=== PATIENT | female | born 1965 | race Caucasian/White ===

== ENCOUNTER 2016-08-05 18:23 | Emergency (ER) | payer MEDICAID ==
[~2016-08-05] VITALS: Ht 167.6 cm; Wt 95.6 kg
[~2016-08-05 18:23] MED LIST: ARIP5TAB6 PO; ASCO10004 PO; CHOL100018 PO; CITA20TA9 PO; DICL50TA4 PO; ESCI10TA PO; ESOM20CA PO; GABA300C10 PO; IBUP-1222 PO; INHALER INH; LORA10TA9 PO; OMEG1CAP6 PO; OXYC1TAB7 PO; TRAZ100T15 PO; VITA100T6 PO; VITA80004 PO; [UNRECOGNIZED DRUG - REMARK]; [UNRECOGNIZED DRUG - REMARK]
[2016-08-05 19:03] LABS: HEMOGLOBIN 15.1 g/dL (11.7-16.4)
[2016-08-05 19:12] LABS: ASPARTATE AMINO TRANSFERASE 14 U/L (15-37); BLOOD UREA NITROGEN 18 mg/dL (7-18)
[2016-08-05 20:35] VITALS: BP 132/70
== END 2016-08-05 20:53 | disposition home or self-care (01) ==
LOC: ED 19:44
DX: R33.9 Retention of urine, unspecified (principal); K21.9 Gastro-esophageal reflux disease without esophagitis; I10 Essential (primary) hypertension; Z90.49 Acquired absence of other specified parts of digestive tract; Z88.5 Allergy status to narcotic agent; Z88.8 Allergy status to other drugs, medicaments and biological substances
CPT/HCPCS: 36415; 51702; 80053; 81003; 83690; 85025; 99284

== ENCOUNTER 2016-08-10 19:55 | Emergency (ER) | payer MEDICAID ==
[~2016-08-10] VITALS: Ht 167.6 cm; Wt 94.0 kg
[2016-08-10] MEDS ORDERED: IBUP800T PO (20:11)
[2016-08-10] MEDS ORDERED: HYDR-3138 PO (20:11)
[2016-08-10] MEDS ORDERED: BENZ100C4 PO (20:11)
[2016-08-10] MEDS ORDERED: TRAZ100T15 PO (20:11)
[2016-08-10] MEDS ORDERED: ACET500T76 PO (20:11)
[2016-08-10] MEDS ORDERED: IBUP-1222 PO (20:11)
[2016-08-10] MEDS ORDERED: LORA10TA3 PO (20:11)
[2016-08-10] MEDS ORDERED: HYDR25TA11 PO (20:11)
[2016-08-10] MEDS ORDERED: TRAM50TA2 PO (20:11)
[2016-08-10] MEDS ORDERED: CHOL500014 PO (20:11)
[2016-08-10] MEDS ORDERED: DIPH25CA61 PO (20:11)
[2016-08-10] MEDS ORDERED: CITA20TA5 PO (20:11)
[2016-08-10] MEDS ORDERED: SODIUM CHLORIDE FLUSH 10ML SYR IVF ONE (20:30)
[2016-08-10 21:16] LABS: BLOOD UREA NITROGEN 14 mg/dL (7-18); HEMOGLOBIN 14.9 g/dL (11.7-16.4); IS PT STATUS REG ER OR PRE ER? YES
[2016-08-10 21:31] VITALS: BP 111/56
== END 2016-08-10 21:32 | disposition home or self-care (01) ==
LOC: ED 20:58
DX: R07.89 Other chest pain (principal); I10 Essential (primary) hypertension
CPT/HCPCS: 36415; 71010; 80048; 82040; 84484; 85025; 85610; 85730; 93005

== ENCOUNTER 2016-09-08 00:21 | Emergency (ER) | payer MEDICAID ==
[~2016-09-08] VITALS: Ht 152.4 cm; Wt 92.6 kg
[~2016-09-08 00:21] MED LIST changes: +ACET500T76 PO; +BENZ100C4 PO; +CHOL500014 PO; +CITA20TA5 PO; +DIPH25CA61 PO; +HYDR-3138 PO; +HYDR25TA11 PO; +IBUP800T PO; +LORA10TA3 PO; +TRAM50TA2 PO
[2016-09-08] MEDS ORDERED: HYDROcodone/APAP 5/325 TABLET PO ONE (01:30)
[2016-09-08] MEDS ORDERED: HYDROcodone/APAP 5/325 TABLET ONE (01:40)
[2016-09-08 01:46] LABS: ASPARTATE AMINO TRANSFERASE 17 U/L (15-37); BLOOD UREA NITROGEN 16 mg/dL (7-18)
[2016-09-08] MEDS ORDERED: NERVE PILL PO (01:48)
[2016-09-08 01:51] LABS: IS PT STATUS REG ER OR PRE ER? YES
[2016-09-08 03:23] VITALS: BP 159/80
== END 2016-09-08 02:17 | disposition home or self-care (01) ==
LOC: ED 02:11
DX: R07.2 Precordial pain (principal); I10 Essential (primary) hypertension; F17.200 Nicotine dependence, unspecified, uncomplicated
CPT/HCPCS: 36415; 71010; 80053; 83880; 84484; 85025; 93005

== ENCOUNTER 2016-09-21 19:49 | Observation (INO) | payer MEDICAID ==
[~2016-09-21] VITALS: Ht 152.4 cm; Wt 90.1 kg
[~2016-09-21 19:49] MED LIST changes: +NERVE PILL PO
[2016-09-21 21:06] LABS: ASPARTATE AMINO TRANSFERASE 28 U/L (15-37); BLOOD UREA NITROGEN 15 mg/dL (7-18)
[2016-09-21 21:11] LABS: IS PT STATUS REG ER OR PRE ER? YES
[2016-09-21] MEDS ORDERED: MECLIZINE CHEWABLE 25 MG TAB PO ONE (21:30)
[2016-09-21] MEDS ORDERED: MECLIZINE CHEWABLE 25 MG TAB ONE (21:56)
[2016-09-22] MEDS ORDERED: SODIUM CHLORIDE 0.9% 1,000 ML IV SCH (01:05)
[2016-09-22 01:22] VITALS: BP 141/89
[2016-09-22] MEDS ORDERED: POLYETHYLENE GLYCOL 17 GM PACKET PO PRN (01:30)
[2016-09-22] MEDS ORDERED: DIAZEPAM 5 MG/ML, 2ML IV PRN (01:30)
[2016-09-22] MEDS ORDERED: MECLIZINE CHEWABLE 25 MG TAB PO PRN (01:30)
[2016-09-22] MEDS ORDERED: ACETAMINOPHEN 325 MG TABLET PO PRN (01:30)
[2016-09-22] MEDS ORDERED: NITROGLYCERIN 0.4 MG BOTTLE (25 TABS) SL PRN (01:30)
[2016-09-22] MEDS ORDERED: DOCUSATE 100 MG CAPSULE PO PRN (01:30)
[2016-09-22] MEDS ORDERED: ONDANSETRON 2MG/ML, 2ML IVPush PRN (01:30)
[2016-09-22] MEDS ORDERED: ENOXAPARIN 40 MG/0.4 ML SQ SCH (01:30)
[2016-09-22] MEDS ORDERED: BISACODYL 10 MG SUPP PR PRN (01:30)
[2016-09-22 03:13] VITALS: BP 124/77
[2016-09-22 05:45] LABS: IS PT STATUS REG ER OR PRE ER? NO
[2016-09-22 07:02] VITALS: BP 119/73
[2016-09-22] MEDS ORDERED: REGADENOSON 0.4 MG/5 ML SYRINGE ONE (09:17)
[2016-09-22 11:21] LABS: IS PT STATUS REG ER OR PRE ER? NO
[2016-09-22 13:41] VITALS: BP 128/82
[2016-09-22] MEDS ORDERED: ACET325T14 PO (16:50)
[2016-09-22] MEDS ORDERED: MECL-85 PO (16:50)
[2016-09-22] MEDS ORDERED: GABA100C PO (16:57)
== END 2016-09-22 19:07 | disposition home or self-care (01) ==
LOC: ED 20:20 → EDIP 09-22 00:14 → INTOOBSV 09-22 00:14 → SUATTDRO 09-22 00:26 → 5SO 09-22 01:09
DX: R07.89 Other chest pain (principal); R42 Dizziness and giddiness; N83.209 Unspecified ovarian cyst, unspecified side; E55.9 Vitamin D deficiency, unspecified; K21.9 Gastro-esophageal reflux disease without esophagitis; E03.9 Hypothyroidism, unspecified; I10 Essential (primary) hypertension; Z98.890 Other specified postprocedural states; Z87.891 Personal history of nicotine dependence
CPT/HCPCS: 36415; 70450; 71010; 78452; 80053; 80061; 80307; 84443; 84484; 85025; 93005; 93017; 93306; 96360; 96361; 96372; 99285; A9502; C9898; G0378; J1650; J2785; J7030

== ENCOUNTER 2016-09-25 22:43 | Emergency (ER) | payer MEDICAID ==
[~2016-09-25] VITALS: Ht 152.4 cm; Wt 92.6 kg
[~2016-09-25 22:43] MED LIST changes: +ACET325T14 PO; +GABA100C PO; +MECL-85 PO
[2016-09-25 23:00] VITALS: BP 127/80
[2016-09-26 00:01] LABS: PATH.CAST-FLAG NOT PRESENT; SPERM-FLAG NOT PRESENT; SRC-FLAG NOT PRESENT; XTAL-FLAG NOT PRESENT; YLC-FLAG NOT PRESENT
== END 2016-09-25 23:28 | disposition home or self-care (01) ==
LOC: ED 23:12
DX: S39.012A Strain of muscle, fascia and tendon of lower back, initial encounter (principal); M51.34 Other intervertebral disc degeneration, thoracic region; M51.36 Other intervertebral disc degeneration, lumbar region; K21.9 Gastro-esophageal reflux disease without esophagitis; Z90.49 Acquired absence of other specified parts of digestive tract; X58.XXXA Exposure to other specified factors, initial encounter; Y93.89 Activity, other specified; Y92.89 Other specified places as the place of occurrence of the external cause; Y99.8 Other external cause status
CPT/HCPCS: 72072; 72110; 81001; 87086

== ENCOUNTER 2016-10-03 19:17 | Emergency (ER) | payer MEDICAID ==
[~2016-10-03] VITALS: Ht 167.6 cm; Wt 93.2 kg
[2016-10-03 21:33] VITALS: BP 130/80
== END 2016-10-03 21:39 | disposition home or self-care (01) ==
LOC: ED 20:00
DX: M17.12 Unilateral primary osteoarthritis, left knee (principal); K21.9 Gastro-esophageal reflux disease without esophagitis; I10 Essential (primary) hypertension
CPT/HCPCS: 99284

== ENCOUNTER 2016-11-10 21:53 | Emergency (ER) | payer MEDICAID ==
[~2016-11-10] VITALS: Ht 167.6 cm; Wt 95.0 kg
[~2016-11-10 21:53] MED LIST changes: +ACET500T71 PO; -ACET500T76 PO
[2016-11-10] MEDS ORDERED: ACETAMINOPHEN 325 MG TABLET PO ONE (22:00)
[2016-11-10 22:38] LABS: BLOOD UREA NITROGEN 19 mg/dL (7-18)
[2016-11-10] MEDS ORDERED: ACETAMINOPHEN 325 MG TABLET ONE (22:38)
[2016-11-10 22:42] LABS: IS PT STATUS REG ER OR PRE ER? YES
[2016-11-10] MEDS ORDERED: SERT25TA PO (22:47)
[2016-11-10] MEDS ORDERED: [UNRECOGNIZED DRUG - OTHER] PO (22:47)
[2016-11-10] MEDS ORDERED: CETI10CA PO (22:47)
[2016-11-10] MEDS ORDERED: ALBU0.63 NEB (22:47)
[2016-11-10] MEDS ORDERED: CYAN250013 PO (22:47)
[2016-11-10 23:43] VITALS: BP 123/76
== END 2016-11-10 23:45 | disposition home or self-care (01) ==
LOC: ED 23:43
DX: R07.89 Other chest pain (principal); K21.9 Gastro-esophageal reflux disease without esophagitis; I10 Essential (primary) hypertension; Z90.49 Acquired absence of other specified parts of digestive tract; Z79.82 Long term (current) use of aspirin
CPT/HCPCS: 36415; 71010; 80048; 82040; 84484; 85025; 93005; 99285

== ENCOUNTER 2016-11-19 20:27 | Emergency (ER) | payer MEDICAID ==
[~2016-11-19] VITALS: Ht 165.1 cm; Wt 92.0 kg
[~2016-11-19 20:27] MED LIST changes: +ALBU0.63 NEB; +CETI10CA PO; +CYAN250013 PO; +SERT25TA PO; +[UNRECOGNIZED DRUG - OTHER] PO
[2016-11-19 22:35] LABS: BLOOD UREA NITROGEN 18 mg/dL (7-18)
[2016-11-19 22:42] LABS: IS PT STATUS REG ER OR PRE ER? YES
[2016-11-19 23:20] VITALS: BP 124/86
== END 2016-11-19 23:22 | disposition home or self-care (01) ==
LOC: ED 21:40
DX: R07.2 Precordial pain (principal); R33.8 Other retention of urine; I10 Essential (primary) hypertension; Z90.49 Acquired absence of other specified parts of digestive tract
CPT/HCPCS: 36415; 51702; 80048; 81003; 82040; 84484; 85025; 93005

== ENCOUNTER 2016-11-27 22:51 | Emergency (ER) | payer MEDICAID ==
[~2016-11-27] VITALS: Ht 165.1 cm; Wt 92.0 kg
[2016-11-27 22:52] VITALS: BP 132/86
[2016-11-27 23:41] LABS: BLOOD UREA NITROGEN 13 mg/dL (7-18)
[2016-11-27 23:45] LABS: IS PT STATUS REG ER OR PRE ER? YES
== END 2016-11-28 01:06 | disposition home or self-care (01) ==
LOC: ED 23:13
DX: R07.89 Other chest pain (principal); R07.2 Precordial pain; R20.9 Unspecified disturbances of skin sensation; F17.200 Nicotine dependence, unspecified, uncomplicated; K21.9 Gastro-esophageal reflux disease without esophagitis
CPT/HCPCS: 36415; 70450; 71010; 80048; 81003; 82040; 84484; 85025; 93005; 99285

== ENCOUNTER 2016-12-03 00:36 | Emergency (ER) | payer MEDICAID ==
[~2016-12-03] VITALS: Ht 157.5 cm; Wt 95.0 kg
[2016-12-03 01:22] LABS: BLOOD UREA NITROGEN 15 mg/dL (7-18)
[2016-12-03 01:28] LABS: IS PT STATUS REG ER OR PRE ER? YES
[2016-12-03 02:07] VITALS: BP 122/80
== END 2016-12-03 02:09 | disposition home or self-care (01) ==
LOC: ED 01:50
DX: R06.00 Dyspnea, unspecified (principal); R60.9 Edema, unspecified; I10 Essential (primary) hypertension; K21.9 Gastro-esophageal reflux disease without esophagitis; M19.90 Unspecified osteoarthritis, unspecified site; F17.200 Nicotine dependence, unspecified, uncomplicated
CPT/HCPCS: 36415; 71010; 80048; 82040; 83880; 84484; 85025; 93005; 99285

== ENCOUNTER 2016-12-04 19:32 | Emergency (ER) | payer MEDICAID ==
[~2016-12-04] VITALS: Ht 157.5 cm; Wt 95.0 kg
[2016-12-04] MEDS ORDERED: KETOROLAC 30 MG/1 ML ONE (21:17)
[2016-12-04 21:22] VITALS: BP 128/81
[2016-12-04] MEDS ORDERED: KETOROLAC 30 MG/1 ML IM ONE (21:30)
[2016-12-04 21:58] LABS: BLOOD UREA NITROGEN 18 mg/dL (7-18)
[2016-12-04 22:02] LABS: ASPARTATE AMINO TRANSFERASE 14 U/L (15-37)
== END 2016-12-04 22:42 | disposition home or self-care (01) ==
LOC: ED 21:20
DX: N83.202 Unspecified ovarian cyst, left side (principal); R30.0 Dysuria; K21.9 Gastro-esophageal reflux disease without esophagitis; I10 Essential (primary) hypertension; Z90.49 Acquired absence of other specified parts of digestive tract
CPT/HCPCS: 36415; 80053; 81003; 83690; 85025; 96372; 99284; J1885

== ENCOUNTER 2018-06-23 15:13 | Observation (INO) | payer MEDICAID ==
[~2018-06-23] VITALS: Ht 154.9 cm; Wt 94.7 kg
[~2018-06-23 15:13] MED LIST changes: +ARIP5TAB13 PO; -ARIP5TAB6 PO; +BENZ-17 PO; -BENZ100C4 PO; +CHOL100012 PO; -CHOL100018 PO; -CHOL500014 PO; +CHOL500045 PO; -CITA20TA5 PO; +CITA20TA6 PO; -HYDR-3138 PO; +HYDR-3237 PO; +IBUP-1223 PO; -IBUP800T PO; +LORA-247 PO; +LORA-856 PO; -LORA10TA3 PO; -LORA10TA9 PO; +TRAZ-137 PO; -TRAZ100T15 PO
[2018-06-23 15:55] LABS: BASOPHILS # (AUTO) 0.03 x10^3/uL (0-0.1); BASOPHILS % (AUTO) 1 % (0-1); EOSINOPHILS # (AUTO) 0.02 x10^3/uL (0-0.4); EOSINOPHILS % (AUTO) 0 % (1-7); LYMPHOCYTES # (AUTO) 0.94 x10^3/uL (1-3.4); LYMPHOCYTES % (AUTO) 17 % (22-44); MD NO; MEAN CORPUSCULAR HEMOGLOBIN 29.2 pg (27.0-34.8); MEAN CORPUSCULAR HGB CONC 33.1 g/dL (32.4-35.8); MEAN CORPUSCULAR VOLUME 88.2 fL (80-100); MEAN PLATELET VOLUME 7.9 fL (7.4-10.4); MONOCYTES # (AUTO) 0.29 x10^3/uL (0.2-0.8); MONOCYTES % (AUTO) 5 % (2-9); NEUTROPHILS # (AUTO) 4.41 x10^3/uL (1.8-6.8); NEUTROPHILS % (AUTO) 78 % (42-75); PLATELET COUNT 259 x10^3/uL (130-400); RED BLOOD COUNT 5.36 x10^6/uL (3.82-5.3); RED CELL DISTRIBUTION WIDTH 13.9 % (9.6-15.2)
[2018-06-23 16:02] LABS: INTERNATIONAL NORMALIZED RATIO 0.99 (0.93-1.1); PROTHROMBIN TIME 10.5 Seconds (9.6-11.5)
[2018-06-23 16:06] LABS: ANION GAP 8 mmol/L (5-15); CALCIUM 9.1 mg/dL (8.5-10.1); CHLORIDE 109 mmol/L (98-107); CREATININE 0.96 mg/dL (0.55-1.02)
[2018-06-23 16:10] LABS: TROPONIN I < 0.015 ng/mL (0.000-0.045)
--- NOTE | 2018-06-23 16:18 | NUR ---
PT PRESENTS TO ED WITH C/O STERNAL CP 02/09 ONSET 2 WEEKS AGO WITH SOB. PT STATES "THE COLD MAKES IT WORSE." ALL MONITORS IN PLACE, CALL LIGHT IN REACH. US IN PROGRESS. AWAITING US RESULTS AND DISPO AT THIS TIME.
--- NOTE | 2018-06-23 16:46 | NUR ---
PT UP TO BATHROOM TO VOID, GAIT STEADY
[2018-06-23] MEDS ORDERED: methylPREDNISolone SOD SUCC 125 MG/2 ML IVP ONE (17:00)
[2018-06-23] MEDS ORDERED: DIPHENHYDRAMINE 50 MG/ML, 1ML IVPush ONE (17:00)
[2018-06-23] MEDS ORDERED: methylPREDNISolone SOD SUCC 125 MG/2 ML ONE (17:11)
[2018-06-23] MEDS ORDERED: DIPHENHYDRAMINE 50 MG/ML, 1ML ONE (17:11)
--- NOTE | 2018-06-23 17:32 | NUR ---
PIV PLACED. PT REPORTS IODINE ALLERGY BUT STATES SHE HAS HAD PREVIOUS CT SCANS WITH CONTRAST AND NO REACTION. EDMD GERARD NOTIFIED. INSTRUCTED RN TO ADMIN BENADRYL ORDERED PRIOR TO CT SCAN. EDMD NOTIFIED PT REPORTS 10/10 CHEST PAIN, HOWEVER PT APPEARS COMFORTABLE, LAUGHING AND CONVERSING WITH DAUGHTER. PT A&O, RESPS EVEN AND UNLABORED, SPEAKING IN FULL SENTENCES. ALL MONITORS IN PLACE.
[2018-06-23] MEDS ORDERED: NITROGLYCERIN SINGLE TAB 0.4 MG SL ONE (17:35)
[2018-06-23] MEDS ORDERED: ASPIRIN 81 MG TABLET CHEW ONE (17:43)
--- NOTE | 2018-06-23 17:49 | NUR ---
pt reports pain level 8/10 from 10, however declines repeat dose nitro.
--- NOTE | 2018-06-23 17:50 | NUR ---
CT PAGED TO NOTIFY PT HAS ALLERGY TO IODINE, CT NOTIFIED PT HAS BEEN PREMEDICATED AND IS READY FOR SCAN.
[2018-06-23] MEDS ORDERED: NITROGLYCERIN SINGLE TAB 0.4 MG SL PRN (18:00)
[2018-06-23] MEDS ORDERED: ASPIRIN 81 MG TABLET CHEW PO ONE (18:00)
--- NOTE | 2018-06-23 18:26 | NUR ---
REPORT TO BREAK MELITA MEJIA; PT IN CT.
--- NOTE | 2018-06-23 18:40 | NUR ---
TASK RN: PT RETURNED FROM CT, NAD NOTED. DESPITE "9/10 PAIN" PT SITTING UP IN [facility], TALKING/LAUGHING ON PHONE. RESPIRATIONS EVEN AND UNLABORED, PWD. BP/SPO2/ECG MONITORING IN PLACE. NSR ON MONITOR. SPO2 >90% ON RA.
[2018-06-23] MEDS ORDERED: OMNIPAQUE 350 MG/ML, 100ML BOTTLE ONE (18:42)
--- NOTE | 2018-06-23 19:05 | NUR ---
report taken from clarence Lroa. all results back, chart up for recheck. awaiting MD and dispo at this time.
[2018-06-23] MEDS ORDERED: SODIUM CHLORIDE FLUSH 10ML SYR IVF PRN (19:30)
--- NOTE | 2018-06-23 19:35 | NUR ---
PT UP TO BATHROOM TO VOID, GAIT STEADY. PT TO BE ADMITTED, UPDATED WITH POC. PT IS UNABLE TO RECALL HOME MEDS. PT'S PREFERRED PHARMACY CALLED, PHARMACY STAFF UNABLE TO BE REACHED AT THIS TIME BY RN TO CONFIRM PT'S HOME MEDS.
[2018-06-23] MEDS ORDERED: PRAV20TA2 PO (19:40)
[2018-06-23] MEDS ORDERED: OXYC-302 PO (19:40)
[2018-06-23] MEDS ORDERED: ESOM20CA PO ×2 (19:40)
[2018-06-23] MEDS ORDERED: APIX5TAB PO (19:40)
[2018-06-23] MEDS ORDERED: CYAN2500 PO (19:44)
[2018-06-23] MEDS ORDERED: vitamin d PO (19:44)
[2018-06-23] MEDS ORDERED: [UNRECOGNIZED DRUG - OTHER] PO (19:45)
--- NOTE | 2018-06-23 19:45 | NUR ---
pts pharmacy contacted, med rec updated per pts pharmacy.
[2018-06-23] MEDS ORDERED: [UNRECOGNIZED DRUG - CODE] PO (19:46)
--- NOTE | 2018-06-23 19:56 | NUR ---
REPORT GIVEN TO RECEIVING RN RAQUEL. PT AWAITING TRANSPORT TO ROOM TO ROOM 509-1.
--- NOTE | 2018-06-23 19:56 | NUR ---
PT ATTACHED TO ALL MONITORS, REMAINS IN NORMAL SINUS RHYTHM. PT A&O, RESPS EVEN AND UNLABORED, NO COMPLAINT AT THIS TIME.
--- NOTE | 2018-06-23 20:05 | NUR ---
PT TRANSPORTED TO [facility], NADN AT TRANSPORT.
[2018-06-23] MEDS ORDERED: DOCUSATE 100 MG CAPSULE PO PRN (23:00)
[2018-06-23] MEDS ORDERED: HEPARIN 5,000 UNITS/ML, 1ML SQ SCH (23:00)
[2018-06-23] MEDS ORDERED: ACETAMINOPHEN 325 MG TABLET PO PRN (23:00)
[2018-06-23] MEDS: TEMPLATE NON-FORMULARY MED. (Esomeprazole Magnesium** (Nexium**) 20 MG) PO SCH (23:00)
[2018-06-23] MEDS ORDERED: ONDANSETRON ODT 4 MG PO PRN (23:00)
[2018-06-23] MEDS ORDERED: PRAVASTATIN 20 MG TABLET PO SCH (23:00)
[2018-06-23] MEDS ORDERED: GABAPENTIN 300 MG CAPSULE PO PRN (23:00)
[2018-06-23] MEDS ORDERED: LIDODERM 5% PATCH TD PRN (23:00)
[2018-06-23] MEDS ORDERED: NICOTINE 21 MG/24 HR PATCH.TD24 TD SCH (23:00)
[2018-06-23] MEDS ORDERED: OXYcodone/APAP 5/325MG TABLET PO PRN (23:30)
[2018-06-23] MEDS ORDERED: ALBUTEROL SULFATE 2.5 MG/3 ML NPPB PRN (23:30)
[2018-06-24] MEDS ORDERED: HEPARIN 5,000 UNITS/ML, 1ML ONE (00:03)
[2018-06-24] MEDS: GABAPENTIN 100 MG CAPSULE PO SCH ×3 (00:08→16:00)
[2018-06-24 00:12] LABS: TROPONIN I < 0.015 ng/mL (0.000-0.045)
[2018-06-24 00:28] VITALS: BP 124/82
[2018-06-24 01:33] VITALS: BP 95/65
[2018-06-24 05:24] LABS: BASOPHILS % (AUTO) 0 % (0-1); EOSINOPHILS # (AUTO) 0.06 x10^3/uL (0-0.4); EOSINOPHILS % (AUTO) 2 % (1-7); LYMPHOCYTES # (AUTO) 0.29 x10^3/uL (1-3.4); LYMPHOCYTES % (AUTO) 7 % (22-44); MD NO; MEAN CORPUSCULAR HEMOGLOBIN 29.5 pg (27.0-34.8); MEAN CORPUSCULAR HGB CONC 33.6 g/dL (32.4-35.8); MEAN CORPUSCULAR VOLUME 87.9 fL (80-100); MEAN PLATELET VOLUME 8.3 fL (7.4-10.4); MONOCYTES # (AUTO) 0.02 x10^3/uL (0.2-0.8); MONOCYTES % (AUTO) 1 % (2-9); NEUTROPHILS # (AUTO) 3.62 x10^3/uL (1.8-6.8); NEUTROPHILS % (AUTO) 91 % (42-75); PLATELET COUNT 208 x10^3/uL (130-400); RED BLOOD COUNT 4.91 x10^6/uL (3.82-5.3)
[2018-06-24] MEDS: TEMPLATE NON-FORMULARY MED. (Esomeprazole Magnesium** (Nexium**) 20 MG) PO SCH (05:35)
[2018-06-24 05:44] LABS: ANION GAP 10 mmol/L (5-15); CALCIUM 8.7 mg/dL (8.5-10.1); CHLORIDE 111 mmol/L (98-107)
[2018-06-24 05:57] LABS: CREATININE 0.69 mg/dL (0.55-1.02); TROPONIN I < 0.015 ng/mL (0.000-0.045)
[2018-06-24 07:03] VITALS: BP 104/70
[2018-06-24] MEDS ORDERED: REGADENOSON 0.4 MG/5 ML SYRINGE ONE (08:30)
[2018-06-24] MEDS ORDERED: APIXABAN 5 MG TABLET PO SCH (09:00)
[2018-06-24] MEDS ORDERED: CYANOCOBALAMIN 1,000 MCG TABLET PO SCH (09:00)
[2018-06-24] MEDS ORDERED: TEMPLATE NON-FORMULARY MED. (Esomeprazole Magnesium** (Nexium**) 20 MG) PO SCH (09:00)
[2018-06-24 12:51] VITALS: BP 109/70
== END 2018-06-24 16:40 | disposition home or self-care (01) ==
LOC: ED 19:19 → EDIP 19:24 → INTOOBSV 19:24 → UNDOADMOB 19:24 → ED 19:35 → 5SO 20:24 → EDIP 20:24 → 5SO 20:46 → EDIP 22:59 → 5SO 06-24 16:29 → DCLOUNGE 06-24 16:29 → UNDODISOB 06-24 16:40
PROVIDERS: ADMIT Internal Medicine; ATTEND Internal Medicine
DX: R07.89 Other chest pain (principal); E78.5 Hyperlipidemia, unspecified; I10 Essential (primary) hypertension; K21.9 Gastro-esophageal reflux disease without esophagitis; Z86.711 Personal history of pulmonary embolism; Z86.718 Personal history of other venous thrombosis and embolism; Z87.891 Personal history of nicotine dependence
CPT/HCPCS: 36415; 71045; 71275; 78452; 80048; 82040; 83880; 84484; 85025; 85610; 85730; 93005; 93017; 93306; 93971; 96374; 96375; 99284; A9502; C9898; G0378; J1200; J2785; J2930; Q9967

== ENCOUNTER 2018-07-08 20:26 | Emergency (ER) | payer MEDICAID ==
[~2018-07-08] VITALS: Ht 165.1 cm; Wt 94.5 kg
[~2018-07-08 20:26] MED LIST changes: +APIX5TAB PO; +CYAN2500 PO; +OXYC-302 PO; +PRAV20TA2 PO; +[UNRECOGNIZED DRUG - CODE] PO; +[UNRECOGNIZED DRUG - OTHER] PO; +vitamin d PO
--- NOTE | 2018-07-08 21:15 | NUR ---
PT SITTING UP IN [place] NOTED. SPEECH CLEAR; FACE APPEARS SYMMETRICAL; A&OX4. PT REPORTS L SIDED NUMBNESS X "TWO WEEKS" W/ WORSENING LLE WEAKNESS. PT REPORTS UNABLE TO MOVE LLE, YET STATES "I WALK A LOT". <2S CAP REFILL LLE. PT RECENTLY DC'D FROM INPATIENT TX FOR SAME S/S. BP/SPO2 MONITOR IN PLACE. LAB IN TO DRAW.
[2018-07-08 21:35] LABS: BASOPHILS # (AUTO) 0.03 x10^3/uL (0-0.1); BASOPHILS % (AUTO) 1 % (0-1); EOSINOPHILS # (AUTO) 0.09 x10^3/uL (0-0.4); EOSINOPHILS % (AUTO) 2 % (1-7); LYMPHOCYTES # (AUTO) 0.84 x10^3/uL (1-3.4); LYMPHOCYTES % (AUTO) 22 % (22-44); MD NO; MEAN CORPUSCULAR HEMOGLOBIN 29.3 pg (27.0-34.8); MEAN CORPUSCULAR HGB CONC 33.4 g/dL (32.4-35.8); MEAN PLATELET VOLUME 7.7 fL (7.4-10.4); MONOCYTES # (AUTO) 0.37 x10^3/uL (0.2-0.8); MONOCYTES % (AUTO) 10 % (2-9); NEUTROPHILS # (AUTO) 2.55 x10^3/uL (1.8-6.8); NEUTROPHILS % (AUTO) 66 % (42-75); PLATELET COUNT 199 x10^3/uL (130-400); RED BLOOD COUNT 4.88 x10^6/uL (3.82-5.3); RED CELL DISTRIBUTION WIDTH 14.4 % (9.6-15.2)
[2018-07-08 21:43] LABS: ALANINE AMINOTRANSFERASE 22 U/L (12-78); ALBUMIN 3.5 g/dL (3.4-5.0); ANION GAP 4 mmol/L (5-15); CALCIUM 8.4 mg/dL (8.5-10.1); CHLORIDE 112 mmol/L (98-107); CREATININE 0.87 mg/dL (0.55-1.02)
[2018-07-08 21:45] LABS: ALKALINE PHOSPHATASE 73 U/L (45-117); BILIRUBIN,TOTAL 0.3 mg/dL (0.2-1.0); TOTAL PROTEIN 6.8 g/dL (6.4-8.2)
[2018-07-08 22:24] VITALS: BP 130/70
--- NOTE | 2018-07-08 22:24 | NUR ---
PT AMBULATING W/ STEADY GATE. AWAITING TROP RESULT FOR DC.
[2018-07-08 22:37] LABS: TROPONIN I < 0.015 ng/mL (0.000-0.045)
--- NOTE | 2018-07-08 23:09 | NUR ---
PT REFUSING WALKER. DC EDUCATION PROVIDED, "I DON'T NEED A WALKER!" "IF I FALL AND BREAK MY HIP I AM GOING TO [place] YOU". PT AMBULATED STEADILY TO DC WITH RN. TAXI VOUCHER PROVIDED. TAXI CALLED BY REG STAFF FOR SAFE TRANSPORT HOME.
== END 2018-07-08 23:12 | disposition home or self-care (01) ==
LOC: ED 23:04
DX: R20.2 Paresthesia of skin (principal); I10 Essential (primary) hypertension; K21.9 Gastro-esophageal reflux disease without esophagitis; Z72.9 Problem related to lifestyle, unspecified; Z87.891 Personal history of nicotine dependence; Z88.5 Allergy status to narcotic agent; Z88.8 Allergy status to other drugs, medicaments and biological substances; Z86.718 Personal history of other venous thrombosis and embolism; Z90.49 Acquired absence of other specified parts of digestive tract
CPT/HCPCS: 36415; 70450; 71045; 80053; 84484; 85025; 93005; 99284

== ENCOUNTER 2018-07-14 23:06 | Emergency (ER) | payer MEDICAID, OTHER ==
[~2018-07-14] VITALS: Ht 152.4 cm; Wt 96.0 kg
[2018-07-14] MEDS ORDERED: HYDROcodone/APAP 5/325 TABLET PO ONE (23:30)
[2018-07-14] MEDS ORDERED: ONDANSETRON ODT 4 MG PO ONE (23:30)
[2018-07-14] MEDS ORDERED: DICYCLOMINE 10 MG/ML, 2ML IM ONE (23:30)
--- NOTE | 2018-07-14 23:33 | NUR ---
'MY GUT IS KILLING ME', 'THINK MY CYSTS ON MY OVARIES ACTING UP' PT HER FOR ABD PAIN, SEE FOR SAME YESTERDAY AT [facility]. C/O OF 02/09 ALL OVER ABD PAIN, AT BEDSIDE, PT ON MONITOR, CALL LIGHT WITHIN REACH
[2018-07-14] MEDS ORDERED: HYDROcodone/APAP 5/325 TABLET ONE (23:37)
[2018-07-14] MEDS ORDERED: DICYCLOMINE 10 MG CAPSULE ONE (23:37)
[2018-07-14] MEDS ORDERED: ONDANSETRON ODT 4 MG ONE (23:37)
[2018-07-14 23:48] LABS: BASOPHILS # (AUTO) 0.03 x10^3/uL (0-0.1); BASOPHILS % (AUTO) 1 % (0-1); EOSINOPHILS # (AUTO) 0.16 x10^3/uL (0-0.4); EOSINOPHILS % (AUTO) 3 % (1-7); LYMPHOCYTES # (AUTO) 1.14 x10^3/uL (1-3.4); LYMPHOCYTES % (AUTO) 24 % (22-44); MD NO; MEAN CORPUSCULAR HEMOGLOBIN 29.5 pg (27.0-34.8); MEAN CORPUSCULAR HGB CONC 33.7 g/dL (32.4-35.8); MEAN CORPUSCULAR VOLUME 87.5 fL (80-100); MONOCYTES # (AUTO) 0.48 x10^3/uL (0.2-0.8); MONOCYTES % (AUTO) 10 % (2-9); NEUTROPHILS # (AUTO) 3.04 x10^3/uL (1.8-6.8); NEUTROPHILS % (AUTO) 63 % (42-75); PLATELET COUNT 219 x10^3/uL (130-400); RED BLOOD COUNT 5.04 x10^6/uL (3.82-5.3)
[2018-07-14 23:51] LABS: MICROSCOPIC NOT IND
[2018-07-14 23:54] LABS: ALANINE AMINOTRANSFERASE 23 U/L (12-78); ALBUMIN 3.7 g/dL (3.4-5.0); ANION GAP 6 mmol/L (5-15); CALCIUM 8.9 mg/dL (8.5-10.1); CHLORIDE 106 mmol/L (98-107); CREATININE 0.97 mg/dL (0.55-1.02)
[2018-07-14 23:56] LABS: ALKALINE PHOSPHATASE 87 U/L (45-117); BILIRUBIN,TOTAL 0.4 mg/dL (0.2-1.0); TOTAL PROTEIN 7.4 g/dL (6.4-8.2)
[2018-07-15 00:04] LABS: CULTURE INDICATED? NO
--- NOTE | 2018-07-15 00:04 | NUR ---
PT IN CT
--- NOTE | 2018-07-15 00:36 | NUR ---
PT TEXTING ON PHONE, NO DISTRESS NOTED, STATES 'GUT KILLING ME'
[2018-07-15 00:37] VITALS: BP 113/68
== END 2018-07-15 01:55 | disposition home or self-care (01) ==
LOC: ED 23:16
DX: N83.292 Other ovarian cyst, left side (principal); N83.291 Other ovarian cyst, right side; R10.84 Generalized abdominal pain; Z72.9 Problem related to lifestyle, unspecified; K21.9 Gastro-esophageal reflux disease without esophagitis; I10 Essential (primary) hypertension
CPT/HCPCS: 36415; 74176; 80053; 81003; 83690; 85025; 96372; 99284; J0500; Q0162

== ENCOUNTER 2018-07-20 21:58 | Emergency (ER) | payer SELFPAY ==
[~2018-07-20] VITALS: Ht 167.6 cm; Wt 97.0 kg
[2018-07-20] MEDS ORDERED: ASPIRIN 81 MG TABLET CHEW PO ONE (22:30)
[2018-07-20] MEDS ORDERED: ACETAMINOPHEN 500 MG TABLET PO ONE (22:30)
--- NOTE | 2018-07-20 22:30 | NUR ---
PT. TO ED WITH C/O STERNAL SHARP/PRESSURE 8/10 CP STARTING WHEN GETTING OUT OF BATH TONIGHT. REPORTS "IT'S THE SAME WHEN I WAS HERE LAST TIME." DR. PARTIDA AT FOR EVAL. EKG WAS COMPLETED IN TRIAGE. CONTINUOUS PULSE OX, B/P, AND HEART MONITORS APPLIED. CALL LIGHT IN REACH. SKIN PWD. EVEN NON-LABORED RESP.
[2018-07-20] MEDS ORDERED: ACETAMINOPHEN 500 MG TABLET ONE (22:40)
[2018-07-20] MEDS ORDERED: ASPIRIN 81 MG TABLET CHEW ONE (22:40)
[2018-07-20 22:52] LABS: BASOPHILS # (AUTO) 0.03 x10^3/uL (0-0.1); BASOPHILS % (AUTO) 1 % (0-1); EOSINOPHILS # (AUTO) 0.18 x10^3/uL (0-0.4); EOSINOPHILS % (AUTO) 5 % (1-7); LYMPHOCYTES # (AUTO) 0.99 x10^3/uL (1-3.4); LYMPHOCYTES % (AUTO) 26 % (22-44); MD NO; MEAN CORPUSCULAR HEMOGLOBIN 29.5 pg (27.0-34.8); MEAN CORPUSCULAR HGB CONC 33.7 g/dL (32.4-35.8); MEAN CORPUSCULAR VOLUME 87.6 fL (80-100); MEAN PLATELET VOLUME 7.9 fL (7.4-10.4); MONOCYTES # (AUTO) 0.36 x10^3/uL (0.2-0.8); MONOCYTES % (AUTO) 10 % (2-9); NEUTROPHILS # (AUTO) 2.23 x10^3/uL (1.8-6.8); NEUTROPHILS % (AUTO) 59 % (42-75); PLATELET COUNT 197 x10^3/uL (130-400); RED BLOOD COUNT 4.63 x10^6/uL (3.82-5.3); RED CELL DISTRIBUTION WIDTH 14.5 % (9.6-15.2)
[2018-07-20 22:58] LABS: ALBUMIN 3.2 g/dL (3.4-5.0); ANION GAP 5 mmol/L (5-15); CALCIUM 8.5 mg/dL (8.5-10.1); CHLORIDE 115 mmol/L (98-107); CREATININE 0.76 mg/dL (0.55-1.02)
[2018-07-20 23:02] LABS: TROPONIN I < 0.015 ng/mL (0.000-0.045)
[2018-07-20 23:14] VITALS: BP 145/76
== END 2018-07-20 23:23 | disposition home or self-care (01) ==
LOC: ED 23:17
DX: R07.89 Other chest pain (principal); K21.9 Gastro-esophageal reflux disease without esophagitis; I10 Essential (primary) hypertension
CPT/HCPCS: 36415; 71045; 80048; 82040; 84484; 85025; 93005; 99284

== ENCOUNTER 2018-07-26 14:48 | Emergency (ER) | payer SELFPAY ==
[~2018-07-26] VITALS: Ht 154.9 cm; Wt 96.0 kg
--- NOTE | 2018-07-26 16:13 | NUR ---
PA WAS IN TO SEE PT.
[2018-07-26] MEDS ORDERED: HYDROcodone/APAP 5/325 TABLET ONE (16:24)
[2018-07-26] MEDS ORDERED: HYDROcodone/APAP 5/325 TABLET PO ONE (16:30)
--- NOTE | 2018-07-26 17:21 | NUR ---
D/C INSTRUCTIONS, MEDS, & F/U APPT RV'WD WITH PT, SHE VERBALIZES UNDERSTANDING. PT AMBULATED OUT OF ED WITH CANE.
[2018-07-26 17:22] VITALS: BP 102/76
== END 2018-07-26 17:24 | disposition home or self-care (01) ==
LOC: ED 17:18
DX: S39.012A Strain of muscle, fascia and tendon of lower back, initial encounter (principal); K21.9 Gastro-esophageal reflux disease without esophagitis; I10 Essential (primary) hypertension; Z87.891 Personal history of nicotine dependence; W13.3XXA Fall through floor, initial encounter; Y93.89 Activity, other specified; Y92.098 Other place in other non-institutional residence as the place of occurrence of the external cause; Y99.8 Other external cause status
CPT/HCPCS: 72110; 99283

== ENCOUNTER 2018-08-15 03:45 | Emergency (ER) | payer MEDICAID ==
[~2018-08-15] VITALS: Ht 152.4 cm; Wt 94.7 kg
[2018-08-15] MEDS ORDERED: ONDANSETRON ODT 4 MG PO ONE (04:00)
[2018-08-15] MEDS ORDERED: ONDANSETRON ODT 4 MG ONE (04:01)
--- NOTE | 2018-08-15 04:05 | NUR ---
BIB [facility] FOR ABDOMINAL PAIN TO LOWER QUADRANTS BILATERALLY. PT STATES "IT STARTED AROUND 0300, SHE VOMITED 3 TIMES THE LAST TIME WAS DARK RED BLOOD." PT HAS HISTORY OF OVARIAN CYSTS. VSS. UPDATED ON POC. PHYSICIAN AT BEDSIDE.
[2018-08-15 04:38] LABS: ALBUMIN 3.5 g/dL (3.4-5.0); ANION GAP 7 mmol/L (5-15); CALCIUM 8.8 mg/dL (8.5-10.1); CHLORIDE 109 mmol/L (98-107); CREATININE 0.84 mg/dL (0.55-1.02)
--- NOTE | 2018-08-15 04:45 | NUR ---
UPDATED ON POC. NO VOMITING OR NAUSEA SINCE ZOFRAN GIVEN.
--- NOTE | 2018-08-15 05:18 | NUR ---
PT RESTING. VSS. NO VOMITING OR NAUSEA. UPDATED ON POC.
[2018-08-15 05:23] LABS: BASOPHILS # (AUTO) 0.05 x10^3/uL (0-0.1); BASOPHILS % (AUTO) 1 % (0-1); EOSINOPHILS # (AUTO) 0.03 x10^3/uL (0-0.4); EOSINOPHILS % (AUTO) 1 % (1-7); LYMPHOCYTES # (AUTO) 0.69 x10^3/uL (1-3.4); LYMPHOCYTES % (AUTO) 16 % (22-44); MD NO; MEAN CORPUSCULAR HEMOGLOBIN 29.4 pg (27.0-34.8); MEAN CORPUSCULAR HGB CONC 33.8 g/dL (32.4-35.8); MEAN PLATELET VOLUME 7.5 fL (7.4-10.4); MONOCYTES # (AUTO) 0.41 x10^3/uL (0.2-0.8); MONOCYTES % (AUTO) 10 % (2-9); NEUTROPHILS # (AUTO) 3.04 x10^3/uL (1.8-6.8); NEUTROPHILS % (AUTO) 72 % (42-75); PLATELET COUNT 221 x10^3/uL (130-400); RED CELL DISTRIBUTION WIDTH 14.4 % (9.6-15.2)
[2018-08-15 05:45] VITALS: BP 151/88
== END 2018-08-15 05:48 | disposition home or self-care (01) ==
LOC: ED 05:15
DX: R11.2 Nausea with vomiting, unspecified (principal); K21.9 Gastro-esophageal reflux disease without esophagitis; I10 Essential (primary) hypertension; Z87.891 Personal history of nicotine dependence
CPT/HCPCS: 36415; 80047; 80048; 82040; 85025; 99283; Q0162

== ENCOUNTER 2018-08-27 14:28 | Emergency (ER) | payer MEDICAID ==
[~2018-08-27] VITALS: Ht 165.1 cm; Wt 91.8 kg
--- NOTE | 2018-08-27 14:36 | NUR ---
Pt BIB [facility]-c/o swelling in L LE x3 days. Pt states hx of same, has been out of lasix for 3 days. Pt ambulatory with steady gait, CMS intact. PT placed in gown, positioned for comfort in bed. Continuous oxygen and BP Monitors applied, all safety measures observed.
[2018-08-27 15:26] LABS: INTERNATIONAL NORMALIZED RATIO 0.95 (0.93-1.1)
--- NOTE | 2018-08-27 15:37 | NUR ---
Chelsea MILLAN at bedside to discuss POC with pt.
[2018-08-27 15:44] VITALS: BP 124/68
== END 2018-08-27 15:46 | disposition home or self-care (01) ==
LOC: ED 14:47
DX: M79.662 Pain in left lower leg (principal); K21.9 Gastro-esophageal reflux disease without esophagitis; Z87.891 Personal history of nicotine dependence
CPT/HCPCS: 36415; 85610; 99284

== ENCOUNTER 2018-08-30 16:12 | Emergency (ER) | payer MEDICAID ==
[~2018-08-30] VITALS: Ht 165.1 cm; Wt 97.7 kg
[2018-08-30 17:33] VITALS: BP 140/70
--- NOTE | 2018-08-30 17:34 | NUR ---
PT PROVIDED WALKER. DC EDUCATION PROVIDED, PT DEMONSTRATES UNDERSTANDING. PT AMBULATED STEADILY TO DC WITH RN AND FAMILY.
== END 2018-08-30 17:36 | disposition home or self-care (01) ==
LOC: ED 17:10
DX: R06.00 Dyspnea, unspecified (principal); M19.90 Unspecified osteoarthritis, unspecified site; K21.9 Gastro-esophageal reflux disease without esophagitis; I10 Essential (primary) hypertension; Z90.49 Acquired absence of other specified parts of digestive tract; Z72.9 Problem related to lifestyle, unspecified; Z86.718 Personal history of other venous thrombosis and embolism
CPT/HCPCS: 71046; 93005; 99283

== ENCOUNTER 2018-09-08 21:46 | Emergency (ER) | payer MEDICAID ==
[~2018-09-08] VITALS: Ht 154.9 cm; Wt 99.1 kg
--- NOTE | 2018-09-08 21:50 | NUR ---
PT BIB [facility] FOR C/O CHEST PAIN X5 DAYS, 01/10. C/O FEELING "COLD/CHILLS" AND VOMITED X1 TODAY. ALSO REPORTS COUGH SINCE AUGUST. PT STATES THAT HER MEDS HAVE BEEN STOLEN AT THE [facility]OMELESS [facility]. ARRIVES TO ED A&OX4. DRY COUGH NOTED, LUNGS CLEAR. ERP IN ROOM IMMEDIATELY. POC RV'WD WITH PT.
[2018-09-08 21:57] VITALS: BP 139/88
[2018-09-08 22:25] LABS: BASOPHILS # (AUTO) 0.01 x10^3/uL (0-0.1); BASOPHILS % (AUTO) 0 % (0-1); EOSINOPHILS # (AUTO) 0.12 x10^3/uL (0-0.4); EOSINOPHILS % (AUTO) 2 % (1-7); LYMPHOCYTES # (AUTO) 0.85 x10^3/uL (1-3.4); LYMPHOCYTES % (AUTO) 17 % (22-44); MD NO; MEAN CORPUSCULAR HEMOGLOBIN 28.8 pg (27.0-34.8); MEAN CORPUSCULAR HGB CONC 33.3 g/dL (32.4-35.8); MEAN CORPUSCULAR VOLUME 86.6 fL (80-100); MEAN PLATELET VOLUME 7.4 fL (7.4-10.4); MONOCYTES # (AUTO) 0.54 x10^3/uL (0.2-0.8); MONOCYTES % (AUTO) 11 % (2-9); NEUTROPHILS # (AUTO) 3.62 x10^3/uL (1.8-6.8); NEUTROPHILS % (AUTO) 70 % (42-75); PLATELET COUNT 238 x10^3/uL (130-400); RED BLOOD COUNT 4.75 x10^6/uL (3.82-5.3); RED CELL DISTRIBUTION WIDTH 15.4 % (9.6-15.2)
[2018-09-08 22:36] LABS: ANION GAP 5 mmol/L (5-15); CHLORIDE 109 mmol/L (98-107); CREATININE 0.87 mg/dL (0.55-1.02)
[2018-09-08 22:40] LABS: TROPONIN I < 0.015 ng/mL (0.000-0.045)
--- NOTE | 2018-09-08 23:11 | NUR ---
PT CALM, STABLE. D/C INSTRUCTIONS & F/U APPT RV'WD WITH PT, SHE VERBALIZES UNDERSTANDING. PT AMBULATED OUT OF ED WITHOUT DIFFICULTY.
== END 2018-09-08 23:14 | disposition home or self-care (01) ==
LOC: ED 22:32
DX: R07.89 Other chest pain (principal); R05 Cough; Z72.9 Problem related to lifestyle, unspecified; K21.9 Gastro-esophageal reflux disease without esophagitis; I10 Essential (primary) hypertension
CPT/HCPCS: 36415; 80048; 84484; 85025; 93005; 99284

== ENCOUNTER 2018-09-11 10:59 | Emergency (ER) | payer MEDICAID ==
[~2018-09-11] VITALS: Ht 154.9 cm; Wt 94.8 kg
[2018-09-11 11:01] VITALS: BP 117/80
== END 2018-09-11 11:26 | disposition home or self-care (01) ==
LOC: ED 11:20
DX: I26.99 Other pulmonary embolism without acute cor pulmonale (principal); Z76.0 Encounter for issue of repeat prescription; K21.9 Gastro-esophageal reflux disease without esophagitis; I10 Essential (primary) hypertension; Z88.5 Allergy status to narcotic agent
CPT/HCPCS: 99283

== ENCOUNTER 2018-09-13 17:46 | Emergency (ER) | payer MEDICAID ==
[~2018-09-13] VITALS: Ht 157.5 cm; Wt 90.8 kg
[2018-09-13 17:54] VITALS: BP 136/84
--- NOTE | 2018-09-13 18:02 | NUR ---
Pt reports L sd CP worse w/ palpation & B leg numbness x 1 day. Pain 3/10, skin W&D, denies SOB. Hx PE's - non-compliant w/ coumadin x 10 days. Cardiac, NIBP & SPO2 monitors IP, EKG IP.
--- NOTE | 2018-09-13 18:12 | NUR ---
Unsuccessful IV attempt x 2.
--- NOTE | 2018-09-13 18:50 | NUR ---
PT AMBULATED STEADILY TO BATHROOM WO ASSISTANCE
[2018-09-13] MEDS ORDERED: APIXABAN 5 MG TABLET ONE (19:43)
--- NOTE | 2018-09-13 19:49 | NUR ---
Patient/Caregiver given discharge instructions and they have confirmed that they understand the instructions. Patient ambulatory with steady gait.
[2018-09-13] MEDS ORDERED: APIXABAN 5 MG TABLET PO ONE (20:00)
== END 2018-09-13 19:51 | disposition home or self-care (01) ==
LOC: ED 19:00
DX: R07.89 Other chest pain (principal); K21.9 Gastro-esophageal reflux disease without esophagitis; I10 Essential (primary) hypertension; M19.90 Unspecified osteoarthritis, unspecified site; Z86.718 Personal history of other venous thrombosis and embolism; F17.200 Nicotine dependence, unspecified, uncomplicated; Z72.9 Problem related to lifestyle, unspecified; Z90.49 Acquired absence of other specified parts of digestive tract
CPT/HCPCS: 36415; 80047; 84484; 93005; 99284

== ENCOUNTER 2018-09-16 07:49 | Emergency (ER) | payer MEDICAID ==
[~2018-09-16] VITALS: Ht 157.5 cm; Wt 98.6 kg
--- NOTE | 2018-09-16 08:38 | NUR ---
53 Y/O FEMALE PRESENTS TO ED WITH C/O "I NEED A BREATHING TREATMENT. I HAVE ASTHMA." FRIENDS AND FAMILY BEDSIDE. NO ACUTE DISTRESS NOTED. NO C/O N/V/D, TRAUMA, SYNCOPE, CP. PT PLACED ON CONT PULSE OX, NIBP.
[2018-09-16 09:17] VITALS: BP 127/89
--- NOTE | 2018-09-16 09:17 | NUR ---
Patient/Caregiver given discharge instructions and they have confirmed that they understand the instructions. Patient ambulatory with steady gait. pt left with all personal belongings.
== END 2018-09-16 09:21 | disposition home or self-care (01) ==
LOC: ED 08:27
DX: S60.212A Contusion of left wrist, initial encounter (principal); I10 Essential (primary) hypertension; K21.9 Gastro-esophageal reflux disease without esophagitis; Z76.0 Encounter for issue of repeat prescription; Z87.891 Personal history of nicotine dependence; W19.XXXA Unspecified fall, initial encounter; Y93.89 Activity, other specified; Y92.89 Other specified places as the place of occurrence of the external cause; Y99.8 Other external cause status
CPT/HCPCS: 93005; 99283

== ENCOUNTER 2018-09-20 07:58 | Emergency (ER) | payer MEDICAID, OTHER ==
[~2018-09-20] VITALS: Ht 165.1 cm; Wt 96.2 kg
[2018-09-20] MEDS ORDERED: APIX5TAB PO (09:38)
[2018-09-20 09:54] LABS: BASOPHILS # (AUTO) 0.01 x10^3/uL (0-0.1); BASOPHILS % (AUTO) 0 % (0-1); EOSINOPHILS # (AUTO) 0.18 x10^3/uL (0-0.4); EOSINOPHILS % (AUTO) 3 % (1-7); LYMPHOCYTES # (AUTO) 0.48 x10^3/uL (1-3.4); LYMPHOCYTES % (AUTO) 7 % (22-44); MD NO; MEAN CORPUSCULAR HEMOGLOBIN 28.9 pg (27.0-34.8); MEAN CORPUSCULAR HGB CONC 32.6 g/dL (32.4-35.8); MEAN CORPUSCULAR VOLUME 88.6 fL (80-100); MEAN PLATELET VOLUME 7.5 fL (7.4-10.4); MONOCYTES # (AUTO) 0.42 x10^3/uL (0.2-0.8); MONOCYTES % (AUTO) 7 % (2-9); NEUTROPHILS # (AUTO) 5.39 x10^3/uL (1.8-6.8); NEUTROPHILS % (AUTO) 83 % (42-75); PLATELET COUNT 226 x10^3/uL (130-400); RED BLOOD COUNT 4.55 x10^6/uL (3.82-5.3); RED CELL DISTRIBUTION WIDTH 15.8 % (9.6-15.2)
[2018-09-20] MEDS ORDERED: ONDANSETRON ODT 4 MG PO ONE (10:00)
--- NOTE | 2018-09-20 10:00 | NUR ---
PT STATES SHE HAS HAD A COUGH AND VOMITING FOR SEVERAL DAYS
[2018-09-20] MEDS ORDERED: ONDANSETRON ODT 4 MG ONE (10:24)
[2018-09-20 10:33] LABS: ALBUMIN 3.2 g/dL (3.4-5.0); ANION GAP 4 mmol/L (5-15); CALCIUM 8.8 mg/dL (8.5-10.1); CHLORIDE 110 mmol/L (98-107)
[2018-09-20 10:37] LABS: ALANINE AMINOTRANSFERASE 24 U/L (12-78); ALKALINE PHOSPHATASE 87 U/L (45-117); BILIRUBIN,TOTAL 0.4 mg/dL (0.2-1.0); CREATININE 0.74 mg/dL (0.55-1.02)
[2018-09-20 10:40] LABS: MICROSCOPIC NOT IND
[2018-09-20 10:51] LABS: CULTURE INDICATED? NO
[2018-09-20 11:19] VITALS: BP 112/71
--- NOTE | 2018-09-20 11:19 | NUR ---
RESTING WITH EYES CLOSED. STATES NAUSEA A LITTLE BIT BETTER SINCE MEDICATED FOR SAME. AWAITING DISPO
--- NOTE | 2018-09-20 11:55 | NUR ---
PT TOLERATED PO CHALLENGE S/P ANTINAUSEA MEDICATION
== END 2018-09-20 12:02 | disposition home or self-care (01) ==
LOC: ED 10:22
DX: R11.2 Nausea with vomiting, unspecified (principal); M79.10 Myalgia, unspecified site; R05 Cough; K21.9 Gastro-esophageal reflux disease without esophagitis; I10 Essential (primary) hypertension; Z86.718 Personal history of other venous thrombosis and embolism
CPT/HCPCS: 36415; 80053; 81003; 85025; 99283; Q0162

== ENCOUNTER 2018-09-25 10:14 | Emergency (ER) | payer MEDICAID, OTHER ==
[~2018-09-25] VITALS: Ht 152.4 cm; Wt 94.7 kg
--- NOTE | 2018-09-25 10:45 | NUR ---
PT TO ED FOR PAINFUL URINATION X A FEW DAYS. PT REPORTS HX OF OVARIAN CYSTS THAT MAY HAVE RUPTURED. PT CONNECTED TO MONITORS. VSS. WARM BLANKET PROVIDED FOR COMFORT. EDMD PRESENT FOR ASSESSMENT. ORDERS RECEIVED. PT UP SELF TO RR TO PROVIDE UA SAMPLE. UA SAMPLE COLLECTED AND SENT. AWAITING RESULTS.
[2018-09-25] MEDS ORDERED: ACETAMINOPHEN 325 MG TABLET PO ONE (11:00)
[2018-09-25 11:03] LABS: MICROSCOPIC NOT IND
[2018-09-25 11:04] LABS: CULTURE INDICATED? NO
[2018-09-25 11:09] VITALS: BP 134/67
--- NOTE | 2018-09-25 11:12 | NUR ---
PT RESTING IN ROOM. VSS. NO NEEDS EXPRESSED. WITH PERMISSION FROM PT, UPDATES PROVIDED TO DON. AWAITING UA RESULT.
--- NOTE | 2018-09-25 11:18 | NUR ---
EDMD PRESENT TO BS TO UPDATE ON POC. PLAN TO DC.
[2018-09-25] MEDS ORDERED: ACETAMINOPHEN 325 MG SUPP ONE (11:26)
[2018-09-25] MEDS ORDERED: ACETAMINOPHEN 325 MG TABLET ONE (11:27)
== END 2018-09-25 11:36 | disposition home or self-care (01) ==
LOC: ED 11:23
DX: R30.0 Dysuria (principal); K21.9 Gastro-esophageal reflux disease without esophagitis; I10 Essential (primary) hypertension; Z87.891 Personal history of nicotine dependence
CPT/HCPCS: 81003; 99283

== ENCOUNTER 2018-10-21 14:04 | Emergency (ER) | payer SELFPAY ==
[~2018-10-21] VITALS: Ht 167.6 cm; Wt 92.0 kg
[2018-10-21 15:09] LABS: BASOPHILS # (AUTO) 0.02 x10^3/uL (0-0.1); BASOPHILS % (AUTO) 0 % (0-1); EOSINOPHILS % (AUTO) 2 % (1-7); LYMPHOCYTES # (AUTO) 0.77 x10^3/uL (1-3.4); LYMPHOCYTES % (AUTO) 15 % (22-44); MD NO; MEAN CORPUSCULAR HEMOGLOBIN 28.7 pg (27.0-34.8); MEAN CORPUSCULAR HGB CONC 32.7 g/dL (32.4-35.8); MEAN CORPUSCULAR VOLUME 87.7 fL (80-100); MEAN PLATELET VOLUME 7.9 fL (7.4-10.4); MONOCYTES # (AUTO) 0.37 x10^3/uL (0.2-0.8); MONOCYTES % (AUTO) 7 % (2-9); NEUTROPHILS # (AUTO) 3.74 x10^3/uL (1.8-6.8); NEUTROPHILS % (AUTO) 75 % (42-75); PLATELET COUNT 197 x10^3/uL (130-400); RED BLOOD COUNT 4.43 x10^6/uL (3.82-5.3); RED CELL DISTRIBUTION WIDTH 15.7 % (9.6-15.2)
[2018-10-21 15:16] LABS: ANION GAP 5 mmol/L (5-15); CALCIUM 8.4 mg/dL (8.5-10.1); CHLORIDE 109 mmol/L (98-107); CREATININE 0.86 mg/dL (0.55-1.02)
[2018-10-21 16:47] VITALS: BP 123/76
== END 2018-10-21 16:56 | disposition home or self-care (01) ==
LOC: ED 15:10
DX: M79.662 Pain in left lower leg (principal); K21.9 Gastro-esophageal reflux disease without esophagitis; I10 Essential (primary) hypertension; Z87.891 Personal history of nicotine dependence; Z90.49 Acquired absence of other specified parts of digestive tract; Z86.718 Personal history of other venous thrombosis and embolism
CPT/HCPCS: 36415; 80048; 82040; 85025; 99284

== ENCOUNTER 2018-11-25 17:38 | Emergency (ER) | payer MEDICAID ==
[~2018-11-25] VITALS: Ht 165.1 cm; Wt 94.3 kg
[2018-11-25 19:54] VITALS: BP 134/77
== END 2018-11-25 21:55 | disposition home or self-care (01) ==
LOC: ED 19:51
DX: R07.89 Other chest pain (principal); I10 Essential (primary) hypertension; K21.9 Gastro-esophageal reflux disease without esophagitis; Z90.49 Acquired absence of other specified parts of digestive tract; Z87.891 Personal history of nicotine dependence
CPT/HCPCS: 36415; 71045; 80053; 81003; 84484; 85025; 93005; 99284

== ENCOUNTER 2018-12-17 16:15 | Emergency (ER) | payer MEDICAID ==
[~2018-12-17] VITALS: Ht 152.4 cm; Wt 95.0 kg
[2018-12-17 17:37] VITALS: BP 112/71
== END 2018-12-17 17:58 | disposition home or self-care (01) ==
LOC: ED 16:53
DX: G89.29 Other chronic pain (principal); M79.662 Pain in left lower leg; K21.9 Gastro-esophageal reflux disease without esophagitis; I10 Essential (primary) hypertension; Z90.49 Acquired absence of other specified parts of digestive tract
CPT/HCPCS: 99284

== ENCOUNTER 2019-04-30 06:48 | Emergency (ER) | payer MEDICAID ==
[~2019-04-30] VITALS: Ht 165.1 cm; Wt 68.2 kg
[~2019-04-30 06:48] MED LIST changes: +ACET500T64 PO; -ACET500T71 PO; +CYAN500T18 PO; +CYAN500T54 PO; +ESOM40CA PO; +FLUT9.9S NAS; +HYDR-826 PO; -HYDR25TA11 PO
--- NOTE | 2019-04-30 06:58 | NUR ---
Pt presents to ED by EMS from home with c/o non-productive cough for one month since "leaving [facility]". Pt denies weight loss, night sweats, chills, fevers, trauma, or syncope. Pt has unlabored respirations with even chest rise and fall and trachea is midline with no deviations observed. Pt unable to provide home medication lists. Pt is a poor historian of her personal medical history. Pt connected to NIBP monitor and pulse ox monitor. Bedrails up x 2, call light within reach. Family at bedside. Warm blankets provided for comfort measures. No needs expressed.
[2019-04-30] MEDS ORDERED: SODIUM CHLORIDE FLUSH 10ML SYR IVF ONE (07:30)
[2019-04-30 07:40] LABS: BASOPHILS # (AUTO) 0.03 x10^3/uL (0-0.1); BASOPHILS % (AUTO) 1 % (0-1); EOSINOPHILS # (AUTO) 0.05 x10^3/uL (0-0.4); EOSINOPHILS % (AUTO) 1 % (1-7); LYMPHOCYTES # (AUTO) 0.76 x10^3/uL (1-3.4); LYMPHOCYTES % (AUTO) 15 % (22-44); MD NO; MEAN CORPUSCULAR HEMOGLOBIN 29.7 pg (27.0-34.8); MEAN CORPUSCULAR HGB CONC 33.2 g/dL (32.4-35.8); MEAN CORPUSCULAR VOLUME 89.4 fL (80-100); MEAN PLATELET VOLUME 7.2 fL (7.4-10.4); MONOCYTES # (AUTO) 0.45 x10^3/uL (0.2-0.8); MONOCYTES % (AUTO) 9 % (2-9); NEUTROPHILS # (AUTO) 3.73 x10^3/uL (1.8-6.8); NEUTROPHILS % (AUTO) 74 % (42-75); PLATELET COUNT 202 x10^3/uL (130-400); RED BLOOD COUNT 4.97 x10^6/uL (3.82-5.3); RED CELL DISTRIBUTION WIDTH 14.9 % (9.6-15.2)
[2019-04-30 07:49] LABS: ALBUMIN 3.5 g/dL (3.4-5.0); ANION GAP 7 mmol/L (5-15); CALCIUM 8.7 mg/dL (8.5-10.1); CHLORIDE 109 mmol/L (98-107); CREATININE 0.82 mg/dL (0.55-1.02)
[2019-04-30 07:51] LABS: PROTHROMBIN TIME 10.5 Seconds (9.6-11.5)
[2019-04-30 07:53] LABS: TROPONIN I < 0.015 ng/mL (0.000-0.045)
--- NOTE | 2019-04-30 08:23 | NUR ---
DOES PT HAVE IV FOR CTA?
--- NOTE | 2019-04-30 09:07 | NUR ---
Pt's IV failed during injection, tubing blew up, unsure how much if any contrast made it into pt. Due to the line breaking almost immediately no images were take for the CTA PE. After IV access is regained we can proceed with the study.
[2019-04-30] MEDS ORDERED: SODIUM CHLORIDE 0.9% 1,000ML IVBOLUS ONE (10:00)
--- NOTE | 2019-04-30 10:22 | NUR ---
LATE NOTE ENTRY DUE TO PT CARE. PIV removed by [facility] staff with tip intact. New PIV established by [facility] staff. [place] transported [place] [facility]. No needs expressed.
--- NOTE | 2019-04-30 10:47 | NUR ---
PT'S IV NOT WORKING WELL ENOUGH FOR CTA - PSI SPIKED DURING TEST INJ TO ALMOST 300PSI, REPOSITIONED ARM TO ENSURE LEAST AMOUNT OF RESISTANCE. TRIED TEST INJ AGAIN AND PRESSURE SPIKED AGAIN TO 300PSI. I DETERMINED IV WASN'T SAFE FOR THIS INJ. EITHER THE VEIN OR TUBING WOULD BLOW WITH THE CONTRAST WHICH IS THICKER THAN THE SALINE. AWAITING NEW IV OR NEW INSTRUCTIONS.
--- NOTE | 2019-04-30 11:27 | NUR ---
LATE NOTE ENTRY DUE TO PT CARE. US PIV established by [facility] staff. CT contacted and aware. Pt pending CT scan.
--- NOTE | 2019-04-30 11:54 | NUR ---
Pt transported on gurney to CT at this time. NADN. No needs expressed.
[2019-04-30 12:00] VITALS: BP 124/68
--- NOTE | 2019-04-30 12:02 | NUR ---
Pt back to room and reconnected to NIBP cuff, continous pulse ox monitor, and cardiac cath lab manager. Call light within reach. Bedrails up x 2. NADN. Pt requesting coffee. Pt aware of NPO pending CT results.
== END 2019-04-30 12:44 | disposition home or self-care (01) ==
LOC: ED 09:22
DX: R91.1 Solitary pulmonary nodule (principal); R06.00 Dyspnea, unspecified; K21.9 Gastro-esophageal reflux disease without esophagitis; I10 Essential (primary) hypertension; M19.90 Unspecified osteoarthritis, unspecified site; Z86.718 Personal history of other venous thrombosis and embolism
CPT/HCPCS: 36415; 71046; 71275; 80048; 82040; 84484; 85025; 85610; 93005; 99284

== ENCOUNTER 2019-05-14 15:28 | Emergency (ER) | payer MEDICAID ==
[~2019-05-14] VITALS: Ht 165.1 cm; Wt 100.0 kg
--- NOTE | 2019-05-14 15:46 | NUR ---
BIB EMS FOR N/V. EMESIS STARTED THIS AM. BRIGHT RED BLOOD. PT STATES HER BLOOD THINNER WAS DC LAST WEEK. DENIES ANY ABDOMINAL PAIN.
[2019-05-14] MEDS ORDERED: PANTOPRAZOLE 80 MG in SODIUM CHLORIDE 0.9% 50 ML IVPB ONE (15:56)
[2019-05-14] MEDS ORDERED: PANTOPRAZOLE 80 MG in SODIUM CHLORIDE 0.9% 100 ML IV SCH (15:56)
[2019-05-14] MEDS ORDERED: ONDANSETRON 2MG/ML, 2ML IVPush ONE (16:00)
[2019-05-14] MEDS ORDERED: ONDANSETRON 2MG/ML, 2ML ONE (16:10)
[2019-05-14 16:24] LABS: BASOPHILS # (AUTO) 0.04 x10^3/uL (0-0.1); BASOPHILS % (AUTO) 1 % (0-1); EOSINOPHILS # (AUTO) 0.11 x10^3/uL (0-0.4); EOSINOPHILS % (AUTO) 2 % (1-7); LYMPHOCYTES # (AUTO) 0.66 x10^3/uL (1-3.4); LYMPHOCYTES % (AUTO) 14 % (22-44); MD NO; MEAN CORPUSCULAR HEMOGLOBIN 29.4 pg (27.0-34.8); MEAN CORPUSCULAR VOLUME 89.2 fL (80-100); MEAN PLATELET VOLUME 7.8 fL (7.4-10.4); MONOCYTES # (AUTO) 0.25 x10^3/uL (0.2-0.8); MONOCYTES % (AUTO) 5 % (2-9); NEUTROPHILS # (AUTO) 3.79 x10^3/uL (1.8-6.8); NEUTROPHILS % (AUTO) 78 % (42-75); PLATELET COUNT 213 x10^3/uL (130-400); RED BLOOD COUNT 4.88 x10^6/uL (3.82-5.3); RED CELL DISTRIBUTION WIDTH 14.6 % (9.6-15.2)
[2019-05-14 16:34] LABS: ALANINE AMINOTRANSFERASE 23 U/L (12-78); ALBUMIN 3.5 g/dL (3.4-5.0); ANION GAP 6 mmol/L (5-15); CALCIUM 8.9 mg/dL (8.5-10.1); CHLORIDE 110 mmol/L (98-107); CREATININE 0.79 mg/dL (0.55-1.02)
[2019-05-14 16:36] LABS: ALKALINE PHOSPHATASE 90 U/L (45-117); BILIRUBIN,TOTAL 0.3 mg/dL (0.2-1.0); TOTAL PROTEIN 7.6 g/dL (6.4-8.2)
--- NOTE | 2019-05-14 16:40 | NUR ---
REPORT RECEIVED FROM CEDRIC HUA.
--- NOTE | 2019-05-14 16:40 | NUR ---
PATIENT AMBULATED TO THE BATHROOM WITH A STEADY GAIT.
[2019-05-14 16:53] VITALS: BP 141/73
--- NOTE | 2019-05-14 16:55 | NUR ---
VS UPDATED. PT MEDICATED PER EMAR. PT RESTING ON GURNEY WATCHING TV. DENIES FURTHER NEEDS AT THIS TIME. CALL LIGHT IN REACH.
[2019-05-14 17:20] LABS: INTERNATIONAL NORMALIZED RATIO 0.92 (0.93-1.1); PROTHROMBIN TIME 9.7 Seconds (9.6-11.5)
== END 2019-05-14 18:49 | disposition home or self-care (01) ==
LOC: ED 16:36
DX: R11.2 Nausea with vomiting, unspecified (principal); F17.200 Nicotine dependence, unspecified, uncomplicated; I10 Essential (primary) hypertension; Z90.49 Acquired absence of other specified parts of digestive tract
CPT/HCPCS: 36415; 80053; 83690; 85025; 85610; 85730; 86850; 86900; 96365; 96366; 96375; 99283; C9113; J2405

== ENCOUNTER 2019-05-15 21:09 | Emergency (ER) | payer MEDICAID ==
[~2019-05-15] VITALS: Ht 167.6 cm; Wt 93.8 kg
[2019-05-15 21:36] VITALS: BP 131/82
== END 2019-05-15 23:18 | disposition home or self-care (01) ==
LOC: ED 23:00
DX: S70.02XA Contusion of left hip, initial encounter (principal); I10 Essential (primary) hypertension; W01.0XXA Fall on same level from slipping, tripping and stumbling without subsequent striking against object, initial encounter; Y93.89 Activity, other specified; Y92.89 Other specified places as the place of occurrence of the external cause; Y99.8 Other external cause status
CPT/HCPCS: 99283

== ENCOUNTER 2019-05-21 09:01 | Emergency (ER) | payer MEDICAID ==
[~2019-05-21] VITALS: Ht 165.1 cm; Wt 96.0 kg
--- NOTE | 2019-05-21 09:09 | NUR ---
PT BIB [facility] FOR CHEST PAIN X 1 DAY. PT STATES "STABBING IN MIDDLE OF CHEST." PT DENIES ANY RADIATION, ANY AGGRAVATING OR ALEVIATING FACTORS. PER EMS, PT FSBG 90, GIVEN 324MG PO ASA, NITRO SL X 2 DOSES. PIV ESTABLISHED EN ROUTE. PT ARRIVED SITTING UPRIGHT ON GURNEY, AAO X 4, EKG COMPLETED, PT DRESSED IN GOWN AND ATTACHED TO FULL MONITOR. ROOM AIR, NAD, CALL LIGHT WITHIN REACH. SIDERAIL X [address]
[2019-05-21 09:11] VITALS: BP 134/81
--- NOTE | 2019-05-21 09:20 | NUR ---
PA AT BEDSIDE FOR EXAM.
[2019-05-21 09:38] LABS: BASOPHILS # (AUTO) 0.02 x10^3/uL (0-0.1); BASOPHILS % (AUTO) 0 % (0-1); EOSINOPHILS # (AUTO) 0.06 x10^3/uL (0-0.4); EOSINOPHILS % (AUTO) 1 % (1-7); LYMPHOCYTES # (AUTO) 0.66 x10^3/uL (1-3.4); LYMPHOCYTES % (AUTO) 13 % (22-44); MD NO; MEAN CORPUSCULAR HEMOGLOBIN 29.4 pg (27.0-34.8); MEAN CORPUSCULAR HGB CONC 32.7 g/dL (32.4-35.8); MEAN CORPUSCULAR VOLUME 89.8 fL (80-100); MEAN PLATELET VOLUME 7.5 fL (7.4-10.4); MONOCYTES # (AUTO) 0.38 x10^3/uL (0.2-0.8); MONOCYTES % (AUTO) 7 % (2-9); NEUTROPHILS # (AUTO) 4.06 x10^3/uL (1.8-6.8); NEUTROPHILS % (AUTO) 79 % (42-75); PLATELET COUNT 214 x10^3/uL (130-400); RED BLOOD COUNT 4.81 x10^6/uL (3.82-5.3)
[2019-05-21 09:48] LABS: ALBUMIN 3.3 g/dL (3.4-5.0); ANION GAP 5 mmol/L (5-15); CALCIUM 8.4 mg/dL (8.5-10.1); CHLORIDE 109 mmol/L (98-107); CREATININE 0.71 mg/dL (0.55-1.02)
[2019-05-21 09:52] LABS: TROPONIN I < 0.015 ng/mL (0.000-0.045)
--- NOTE | 2019-05-21 11:32 | NUR ---
PT AMBULATORY TO RESTROOM WITH STEADY GAIT.
--- NOTE | 2019-05-21 12:03 | NUR ---
Patient/Caregiver given discharge instructions and they have confirmed that they understand the instructions. Patient ambulatory with steady gait. PIV REMOVED WITH TIP INTACT.
== END 2019-05-21 12:05 | disposition home or self-care (01) ==
LOC: ED 11:20
DX: R07.89 Other chest pain (principal); F17.210 Nicotine dependence, cigarettes, uncomplicated; I10 Essential (primary) hypertension; K21.9 Gastro-esophageal reflux disease without esophagitis; Z90.49 Acquired absence of other specified parts of digestive tract
CPT/HCPCS: 36415; 71045; 80048; 82040; 84484; 85025; 93005; 99284

== ENCOUNTER 2019-05-25 07:05 | Emergency (ER) | payer MEDICAID ==
[~2019-05-25] VITALS: Ht 152.4 cm; Wt 92.7 kg
[2019-05-25 07:06] VITALS: BP 129/73
--- NOTE | 2019-05-25 07:28 | NUR ---
RESEARCH ASSOC: PT FROM LOBBY TO ROOM.
--- NOTE | 2019-05-25 07:44 | NUR ---
PATIENT BROUGHT BACK FROM TRIAGE WITH CHIEF COMPLAINT OF LEFT LEG PAIN STARTING THIS MORING AT "5AM". CMS INTACT.
--- NOTE | 2019-05-25 09:00 | NUR ---
REPORT FROM MELITA BAUER. PT RESTING IN BED, DENIES ANY NEEDS OR CONCERNS AT THIS TIME, CALL LIGHT IN REACH.
== END 2019-05-25 09:56 | disposition home or self-care (01) ==
LOC: ED 09:32
DX: M25.552 Pain in left hip (principal); M79.662 Pain in left lower leg; I10 Essential (primary) hypertension; K21.9 Gastro-esophageal reflux disease without esophagitis
CPT/HCPCS: 99284

== ENCOUNTER 2019-05-28 07:38 | Emergency (ER) | payer MEDICAID ==
[~2019-05-28] VITALS: Ht 153.7 cm; Wt 90.3 kg
--- NOTE | 2019-05-28 07:48 | NUR ---
pt ambulated to room 14 from triage w a steady gait. cane assist.
--- NOTE | 2019-05-28 07:59 | NUR ---
PA-C IS AT THE BEDSIDE TO ASSESS.
[2019-05-28] MEDS ORDERED: DEXAMETHASONE 4 MG/ML, 5ML ONE (08:04)
[2019-05-28] MEDS ORDERED: DEXAMETHASONE 4 MG/ML, 1ML PO ONE (08:30)
[2019-05-28] MEDS ORDERED: BICILLIN-LA 1,200,000 UNITS/2 ML IM ONE (08:30)
[2019-05-28 09:02] VITALS: BP 138/73
--- NOTE | 2019-05-28 09:05 | NUR ---
report received from MELITA Thomas, pt medicated per emar. vs reassessed. pt a&o, resps even and unlabored, nadn. pt to be dc'd shortly.
--- NOTE | 2019-05-28 09:18 | NUR ---
pt given dc instructions and script, pt educated regarding rx for magic mouthwash. no s/sx adverse rxn to med given. pt tolerating PO fluids without difficulty. pt amb to dc desk with steady gait accompanied by . manish at dc.
== END 2019-05-28 09:19 | disposition home or self-care (01) ==
LOC: ED 07:53
DX: J03.90 Acute tonsillitis, unspecified (principal); R09.81 Nasal congestion; R05 Cough; I10 Essential (primary) hypertension
CPT/HCPCS: 71046; 87880; 96372; 99284; J0561; J1100

== ENCOUNTER 2019-05-31 12:29 | Emergency (ER) | payer MEDICAID ==
[~2019-05-31] VITALS: Ht 165.1 cm; Wt 93.0 kg
[2019-05-31 12:44] VITALS: BP 129/86
[2019-05-31] MEDS ORDERED: METHOCARBAMOL 750 MG TABLET ONE ×2 (13:10)
[2019-05-31] MEDS ORDERED: METHOCARBAMOL 750 MG TABLET PO ONE (13:30)
[2019-05-31] MEDS ORDERED: KETOROLAC 30 MG/1 ML IM ONE (13:30)
== END 2019-05-31 14:22 | disposition home or self-care (01) ==
LOC: ED 13:43
DX: S39.012A Strain of muscle, fascia and tendon of lower back, initial encounter (principal); I10 Essential (primary) hypertension; K21.9 Gastro-esophageal reflux disease without esophagitis; X58.XXXA Exposure to other specified factors, initial encounter; Y93.89 Activity, other specified; Y92.89 Other specified places as the place of occurrence of the external cause; Y99.8 Other external cause status
CPT/HCPCS: 96372; 99283; J1885

== ENCOUNTER 2019-06-01 16:01 | Emergency (ER) | payer MEDICAID ==
[2019-06-01] MEDS ORDERED: SODIUM CHLORIDE FLUSH 10ML SYR IVF ONE (16:30)
[2019-06-01] MEDS ORDERED: SODIUM CHLORIDE 0.9% 1,000ML IVBOLUS ONE (16:30)
[2019-06-01] MEDS ORDERED: PLEASE ENTER HEIGHT AND WEIGHT MC SCH (16:30)
[2019-06-01] MEDS ORDERED: FAMOTIDINE 20 MG/2 ML IV ONE (16:30)
[2019-06-01] MEDS ORDERED: ONDANSETRON 2MG/ML, 2ML IVPush ONE (16:30)
--- NOTE | 2019-06-01 16:42 | NUR ---
PT AMBULATED TO THE BR W/ A STEADY GAIT.
--- NOTE | 2019-06-01 16:46 | NUR ---
URINE COLLECTED AND SENT TO LAB. LAB IN ROOM.
[2019-06-01 16:53] LABS: MICROSCOPIC NOT IND
[2019-06-01 16:55] LABS: CULTURE INDICATED? NO
[2019-06-01 17:07] LABS: BASOPHILS # (AUTO) 0.04 x10^3/uL (0-0.1); BASOPHILS % (AUTO) 1 % (0-1); EOSINOPHILS # (AUTO) 0.09 x10^3/uL (0-0.4); EOSINOPHILS % (AUTO) 1 % (1-7); LYMPHOCYTES # (AUTO) 0.34 x10^3/uL (1-3.4); LYMPHOCYTES % (AUTO) 5 % (22-44); MD NO; MEAN CORPUSCULAR HEMOGLOBIN 29.3 pg (27.0-34.8); MEAN CORPUSCULAR HGB CONC 32.9 g/dL (32.4-35.8); MEAN CORPUSCULAR VOLUME 89.3 fL (80-100); MEAN PLATELET VOLUME 7.3 fL (7.4-10.4); MONOCYTES # (AUTO) 0.54 x10^3/uL (0.2-0.8); MONOCYTES % (AUTO) 7 % (2-9); NEUTROPHILS # (AUTO) 6.19 x10^3/uL (1.8-6.8); NEUTROPHILS % (AUTO) 86 % (42-75); PLATELET COUNT 248 x10^3/uL (130-400); RED BLOOD COUNT 4.82 x10^6/uL (3.82-5.3); RED CELL DISTRIBUTION WIDTH 15.1 % (9.6-15.2)
[2019-06-01 17:13] LABS: ALANINE AMINOTRANSFERASE 26 U/L (12-78); ALBUMIN 3.5 g/dL (3.4-5.0); ANION GAP 6 mmol/L (5-15); CALCIUM 8.7 mg/dL (8.5-10.1); CHLORIDE 108 mmol/L (98-107)
[2019-06-01 17:16] LABS: ALKALINE PHOSPHATASE 87 U/L (45-117); BILIRUBIN,TOTAL 0.3 mg/dL (0.2-1.0); CREATININE 0.79 mg/dL (0.55-1.02); TOTAL PROTEIN 7.7 g/dL (6.4-8.2)
--- NOTE | 2019-06-01 17:17 | NUR ---
ROSAURA RN ASSISTING PRIMARY RN'S KIM. PT REQUESTING MEDICATION FOR NAUSEA. TO START IV AND MEDICATE PT PER MD ORDER. VSS. SR ON MONITOR. CONT PULSE OX, BP, CARDIAC MONITORS IN PLACE.
[2019-06-01] MEDS ORDERED: ONDANSETRON 2MG/ML, 2ML ONE (17:20)
[2019-06-01] MEDS ORDERED: FAMOTIDINE 20 MG/2 ML ONE (17:20)
--- NOTE | 2019-06-01 17:35 | NUR ---
PT MEDICATED NOTED PER ORDER FOR NAUSEA AND VOMITING. IV PLACED AND IVF INFUSING PER ORDER. DENIES ANY PAIN, CP, SOB. "I JUST GOT SICK AFTER [facility]OWN GAVE ME SOME MEDICINE, I DON'T KNOW THE NAME, I'VE THROWN UP 8 TIMES SINCE LIKE 6AM." PT SIGNIFICANT OTHER YELLING AT THIS RN REQUESTING TO SPEAK WITH MD, ADRESSED PT/SIGNIFICANT OTHER CONCERNS AND DISCUSSED WITH DR. GUERRERO. TO SEE PT.
--- NOTE | 2019-06-01 17:44 | NUR ---
DR. GUERRERO AT BEDSIDE DISCUSSING PT/SIGNICANT OTHERS CONCERNS AND DISCUSSING POC
--- NOTE | 2019-06-01 18:10 | NUR ---
EKG COMPLETED BY AIR QUALITY CONSULTANT. PT REPORTS NAUSEA IMPROVED "FEELING BETTER, THE DOCTOR SAID I CAN GO AFTER MY IV FLUIDS ARE DONE." PER SIGNIFICANT OTHER "WE NEED TO BE OUT OF HERE BEFORE 7-8 BECAUSE WE ARE GETTING AN APPARTMENT AND WON'T BE HOMELESS ANYMORE. PT AMBULATED TO RESTROOM WITH STEADY GAIT. RESTING IN POSITION OF COMFORT. VSS. CALL LIGHT IN REACH. DENIES ANY PAIN, CP, SOB.
[2019-06-01 18:13] VITALS: BP 133/78
--- NOTE | 2019-06-01 18:14 | NUR ---
DISCUSSED TEMPERATURE, 99.[address] GUERRERO, AWAITING ORDERS.
[2019-06-01] MEDS ORDERED: PROMETHAZINE 25 MG/ML, 1ML IM ONE (18:30)
--- NOTE | 2019-06-01 18:31 | NUR ---
BEDSIDE REPORT AND TRANSFER OF CARE BACK TO ARYA HUA
== END 2019-06-01 19:08 | disposition home or self-care (01) ==
LOC: ED 17:31
DX: R11.2 Nausea with vomiting, unspecified (principal); K21.9 Gastro-esophageal reflux disease without esophagitis; I10 Essential (primary) hypertension
CPT/HCPCS: 36415; 74022; 80053; 81003; 82140; 83605; 83690; 85025; 93005; 96361; 96374; 96375; 99284; J2405; J3490; J7030

== ENCOUNTER 2019-06-09 07:31 | Emergency (ER) | payer MEDICAID ==
[~2019-06-09] VITALS: Ht 167.6 cm; Wt 95.0 kg
[~2019-06-09 07:31] MED LIST changes: -TRAZ-137 PO; +TRAZ-175 PO
--- NOTE | 2019-06-09 07:41 | NUR ---
LILIANA HERNANDEZ, PT AT BUS STOP THIS AM C/O CP 02/09 SUBSTERNAL. PT CURRENLTY STATES PAIN REMAINS 02/09. PT DENIES SOB, APPEARS COMFORTABLE ON [employer] Rooms AT THIS TIME. PT TO CARD MONITOR, BP, CONT PULSE OX. EKG COMPLETED
[2019-06-09] MEDS ORDERED: ACETAMINOPHEN 325 MG TABLET ONE (08:23)
[2019-06-09 08:26] VITALS: BP 140/85
[2019-06-09] MEDS ORDERED: ACETAMINOPHEN 325 MG TABLET PO ONE (08:30)
--- NOTE | 2019-06-09 08:34 | NUR ---
PT MEDICATED PER MAR, NAD NOTED AT THIS TIME, PT CONTINUES TO APPEAR TO REST COMFORTABLY, VSS, DAUGHTER NOW AT BEDSIDE STATING, "MOM WHAT DID I TELL YOU, I KEEP TELLING YOU WE NEED TO KEEP YOU OUT OF THE HOSPITAL. BUT YOU KEEP COMING HERE ALL THE TIME"
[2019-06-09 08:38] LABS: BASOPHILS # (AUTO) 0.01 x10^3/uL (0-0.1); BASOPHILS % (AUTO) 0 % (0-1); EOSINOPHILS # (AUTO) 0.08 x10^3/uL (0-0.4); EOSINOPHILS % (AUTO) 2 % (1-7); LYMPHOCYTES # (AUTO) 0.77 x10^3/uL (1-3.4); LYMPHOCYTES % (AUTO) 16 % (22-44); MD NO; MEAN CORPUSCULAR HEMOGLOBIN 29.6 pg (27.0-34.8); MEAN CORPUSCULAR HGB CONC 33.1 g/dL (32.4-35.8); MEAN CORPUSCULAR VOLUME 89.3 fL (80-100); MEAN PLATELET VOLUME 7.1 fL (7.4-10.4); MONOCYTES # (AUTO) 0.34 x10^3/uL (0.2-0.8); MONOCYTES % (AUTO) 7 % (2-9); NEUTROPHILS # (AUTO) 3.58 x10^3/uL (1.8-6.8); NEUTROPHILS % (AUTO) 75 % (42-75); PLATELET COUNT 223 x10^3/uL (130-400); RED BLOOD COUNT 4.79 x10^6/uL (3.82-5.3); RED CELL DISTRIBUTION WIDTH 14.4 % (9.6-15.2)
[2019-06-09 08:49] LABS: ANION GAP 5 mmol/L (5-15); CALCIUM 8.6 mg/dL (8.5-10.1); CHLORIDE 109 mmol/L (98-107); CREATININE 0.68 mg/dL (0.55-1.02)
[2019-06-09 08:52] LABS: TROPONIN I < 0.015 ng/mL (0.000-0.045)
== END 2019-06-09 09:49 | disposition home or self-care (01) ==
LOC: ED 08:15
DX: R07.89 Other chest pain (principal); R19.7 Diarrhea, unspecified; I10 Essential (primary) hypertension; K21.9 Gastro-esophageal reflux disease without esophagitis; Z86.718 Personal history of other venous thrombosis and embolism
CPT/HCPCS: 36415; 80048; 84484; 85025; 93005; 99284

== ENCOUNTER 2019-06-18 10:39 | Emergency (ER) | payer MEDICAID ==
[~2019-06-18] VITALS: Ht 152.4 cm; Wt 92.1 kg
[2019-06-18 10:50] VITALS: BP 138/78
== END 2019-06-18 12:06 | disposition home or self-care (01) ==
LOC: ED 11:55
DX: B34.9 Viral infection, unspecified (principal); I10 Essential (primary) hypertension; K21.9 Gastro-esophageal reflux disease without esophagitis; F17.200 Nicotine dependence, unspecified, uncomplicated; Z86.718 Personal history of other venous thrombosis and embolism
CPT/HCPCS: 99282

== ENCOUNTER 2019-07-09 09:02 | Emergency (ER) | payer MEDICAID ==
[~2019-07-09] VITALS: Ht 152.4 cm; Wt 92.3 kg
[2019-07-09 09:11] VITALS: BP 131/72
== END 2019-07-09 09:49 | disposition home or self-care (01) ==
LOC: ED 09:30
DX: J30.89 Other allergic rhinitis (principal); K21.9 Gastro-esophageal reflux disease without esophagitis; Z90.49 Acquired absence of other specified parts of digestive tract; I10 Essential (primary) hypertension
CPT/HCPCS: 99281

== ENCOUNTER 2019-09-18 21:45 | Emergency (ER) | payer MEDICAID ==
[~2019-09-18] VITALS: Ht 152.4 cm; Wt 65.0 kg
[2019-09-18 21:47] VITALS: BP 148/80
== END 2019-09-18 23:22 ==
LOC: ED 23:16
DX: R11.2 Nausea with vomiting, unspecified (principal); I10 Essential (primary) hypertension; K21.9 Gastro-esophageal reflux disease without esophagitis; Z86.718 Personal history of other venous thrombosis and embolism; Z90.49 Acquired absence of other specified parts of digestive tract; Z86.711 Personal history of pulmonary embolism
CPT/HCPCS: 99283

== ENCOUNTER 2019-10-17 21:47 | Emergency (ER) | payer MEDICAID ==
[~2019-10-17] VITALS: Ht 167.6 cm; Wt 114.0 kg
--- NOTE | 2019-10-17 21:59 | NUR ---
pt bib ambulance. per ems, pt started feeling nauseated with vomiting since yesterday at approximately 5pm. per ems, pt also supposedly experienced intermittent aphasia last couple of days per . pt with no prior neuro history. pt takes home meds for htn, depression, and chronic pain. pt denies any drug or alcohol use. upon arrival to [facility] ed, ekg was obtained. pt attached to all vs monitors. vss at this time .pt arrives alert and oriented x 4. pt changed into gown and is in gurney. pt educated on er process and poc and verbalizes understanding. awaiting erp at this time. piv established by [facility] in route and pt was given 4mg iv zofran and 150 ml NS. pt fsbs was 156 for ems. call light is within reach of pt.
--- NOTE | 2019-10-17 22:39 | NUR ---
pt refuses ct scan saying "i'm afraid of the tubes".
[2019-10-17 22:48] LABS: MEAN CORPUSCULAR HEMOGLOBIN 28.6 pg (27.0-34.8); MEAN CORPUSCULAR HGB CONC 32.7 g/dL (32.4-35.8); MEAN CORPUSCULAR VOLUME 87.5 fL (80-100); MEAN PLATELET VOLUME 6.4 fL (7.4-10.4); PLATELET COUNT 271 x10^3/uL (130-400); RED CELL DISTRIBUTION WIDTH 15.6 % (9.6-15.2)
[2019-10-17 22:51] LABS: ALANINE AMINOTRANSFERASE 11 U/L (12-78); ALBUMIN 2.5 g/dL (3.4-5.0); ANION GAP 6 mmol/L (5-15); CALCIUM 8.2 mg/dL (8.5-10.1); CHLORIDE 102 mmol/L (98-107); CREATININE 0.87 mg/dL (0.55-1.02)
[2019-10-17 22:53] LABS: ALKALINE PHOSPHATASE 72 U/L (45-117); BILIRUBIN,TOTAL 0.7 mg/dL (0.2-1.0); TOTAL PROTEIN 7.7 g/dL (6.4-8.2)
[2019-10-17 23:09] LABS: MD YES
[2019-10-17 23:10] LABS: ANISOCYTOSIS 1+; BAND#(MANUAL) 0.32 x10^3/uL; BANDS%(MANUAL) 2 % (0-7); EOS#(MANUAL) 0.32 x10^3/uL (0.0-0.4); EOS% (MANUAL) 2 % (1-7); LYMPH#(MANUAL) 0.32 x10^3/uL (1-3.4); LYMPHS% (MANUAL) 2 % (22-44); MONOS#(MANUAL) 0.32 x10^3/uL (0.3-2.7); MONOS% (MANUAL) 2 % (2-9); NRBC % (MANUAL) 1 % (0-1); POLYCHROMASIA 1+; SEG#(MANUAL) 14.54 x10^3/uL (1.8-6.8); SEGS% (MANUAL) 92 % (42-75)
[2019-10-17 23:11] LABS: <PLATELET ESTIMATE> ADEQUATE; <PLT MORPHOLOGY> NORMAL PLT MORPH
--- NOTE | 2019-10-17 23:40 | NUR ---
ATTEMPTED TO COLLECT UA FROM PT, BUT PT STATES SHE'S INCONTINENT TO URINE. ERP NOTIFIED OF NEED FOR STRAIGHT CATH.
[2019-10-18 00:55] LABS: MICROSCOPIC AUTO
--- NOTE | 2019-10-18 01:15 | NUR ---
REPORT OF PT TO MELITA CAMPOS. ALL QUESTIONS ANSWERED
--- NOTE | 2019-10-18 01:17 | NUR ---
REPORT FROM MELITA WITT
[2019-10-18 02:32] VITALS: BP 124/97
[2019-10-18] MEDS ORDERED: ONDANSETRON ODT 4 MG ONE (02:43)
[2019-10-18] MEDS ORDERED: ONDANSETRON ODT 4 MG PO ONE (03:00)
== END 2019-10-18 02:52 | disposition home or self-care (01) ==
LOC: ED 23:26
DX: R10.84 Generalized abdominal pain (principal); R11.2 Nausea with vomiting, unspecified; I10 Essential (primary) hypertension; K21.9 Gastro-esophageal reflux disease without esophagitis; F17.210 Nicotine dependence, cigarettes, uncomplicated; Z86.711 Personal history of pulmonary embolism; Z86.718 Personal history of other venous thrombosis and embolism; Z90.49 Acquired absence of other specified parts of digestive tract
CPT/HCPCS: 36415; 80053; 81001; 83690; 85025; 93005; 99284; 99406; Q0162

== ENCOUNTER 2019-10-28 20:28 | Emergency (ER) | payer MEDICAID ==
[~2019-10-28] VITALS: Ht 152.4 cm; Wt 87.8 kg
--- NOTE | 2019-10-28 21:47 | NUR ---
ASSIST RN: DAVID WRAP APPLIED TO R ANKLE. PT REQUESTING CAB VOUCHER FOR D/C HOME.
--- NOTE | 2019-10-28 22:17 | NUR ---
PT AMBULATED TO BR WITH CANE.
--- NOTE | 2019-10-28 22:20 | NUR ---
D/C INSTRUCTIONS & F/U APPT RV'WD WITH PT, SHE VERBALIZES UNDERSTANDING. CAB VOUCHER PROVIDED. PT AMBULATED OUT OF ED WITH CANE WITHOUT DIFFICULTY.
[2019-10-28 22:21] VITALS: BP 127/82
== END 2019-10-28 22:28 | disposition home or self-care (01) ==
LOC: ED 21:39
DX: S93.601A Unspecified sprain of right foot, initial encounter (principal); S93.401A Sprain of unspecified ligament of right ankle, initial encounter; M19.90 Unspecified osteoarthritis, unspecified site; I10 Essential (primary) hypertension; W01.0XXA Fall on same level from slipping, tripping and stumbling without subsequent striking against object, initial encounter; Y93.89 Activity, other specified; Y92.098 Other place in other non-institutional residence as the place of occurrence of the external cause; Y99.8 Other external cause status
CPT/HCPCS: 99284

== ENCOUNTER 2019-11-19 23:29 | Emergency (ER) | payer MEDICAID ==
[~2019-11-19] VITALS: Ht 152.4 cm; Wt 87.4 kg
--- NOTE | 2019-11-19 23:36 | NUR ---
DR. KHAN AT BEDSIDE EVALUATING PT
[2019-11-20 00:03] LABS: BASOPHILS # (AUTO) 0.03 x10^3/uL (0-0.1); BASOPHILS % (AUTO) 1 % (0-1); EOSINOPHILS # (AUTO) 0.11 x10^3/uL (0-0.4); EOSINOPHILS % (AUTO) 2 % (1-7); LYMPHOCYTES # (AUTO) 1.14 x10^3/uL (1-3.4); LYMPHOCYTES % (AUTO) 23 % (22-44); MD NO; MEAN CORPUSCULAR HEMOGLOBIN 28.2 pg (27.0-34.8); MEAN CORPUSCULAR HGB CONC 32.2 g/dL (32.4-35.8); MEAN CORPUSCULAR VOLUME 87.5 fL (80-100); MEAN PLATELET VOLUME 6.9 fL (7.4-10.4); MONOCYTES # (AUTO) 0.35 x10^3/uL (0.2-0.8); MONOCYTES % (AUTO) 7 % (2-9); NEUTROPHILS # (AUTO) 3.33 x10^3/uL (1.8-6.8); NEUTROPHILS % (AUTO) 67 % (42-75); PLATELET COUNT 312 x10^3/uL (130-400); RED BLOOD COUNT 4.33 x10^6/uL (3.82-5.3); RED CELL DISTRIBUTION WIDTH 17.7 % (9.6-15.2)
[2019-11-20 00:12] LABS: ALBUMIN 2.9 g/dL (3.4-5.0); ANION GAP 3 mmol/L (5-15); CALCIUM 8.8 mg/dL (8.5-10.1); CHLORIDE 108 mmol/L (98-107); CREATININE 0.93 mg/dL (0.55-1.02); INTERNATIONAL NORMALIZED RATIO 1.08 (0.93-1.1); PROTHROMBIN TIME 11.5 Seconds (9.6-11.5)
--- NOTE | 2019-11-20 00:38 | NUR ---
PT RESTING ON GURNEY, WATCHING TV. DENIES ANY NEEDS AT THIS TIME. AWAITING US. WILL CONTINUE TO MONITOR. CALL LIGHT WITHIN REACH
--- NOTE | 2019-11-20 01:02 | NUR ---
PT BACK FROM US
[2019-11-20] MEDS ORDERED: ENOXAPARIN 80 MG/0.8 ML SQ ONE (02:00)
--- NOTE | 2019-11-20 02:06 | NUR ---
PT AMBULATORY TO RESTROOM, BACK TO BED WITHOUT DIFFICULTY
--- NOTE | 2019-11-20 02:33 | NUR ---
PT OFFERED ADMISSION BY DR. KHAN DUE TO CLOTS GETTING WORSE IN HER LEGS. PT IS ADAMANT THAT SHE DOES NOT WANT TO BE ADMITTED STATING "I'VE GOT TO TAKE CARE OF MY SIGNIFICANT OTHER AND I JUST NEED A DIFFERENT MEDICINE". DR. KHAN ADVISED THE PATIENT OF ALL THE RISKS ASSOCIATED WITH REFUSING ADMISSION TO INCLUDE . PT VERBALIZES UNDERSTANDING. AMA FORM SIGNED. PT IS ALSO AWARE THAT SHE CAN RETURN HERE FOR TREATMENT AT ANY TIME
[2019-11-20] MEDS ORDERED: ENOXAPARIN 40 MG/0.4 ML ONE (02:36)
--- NOTE | 2019-11-20 02:41 | NUR ---
PT MEDICATED PER EMAR. 5 RIGHTS ADDRESSED
--- NOTE | 2019-11-20 03:11 | NUR ---
Patient/Caregiver given discharge instructions and they have confirmed that they understand the instructions. Patient ambulatory with steady gait.
[2019-11-20 03:12] VITALS: BP 130/76
== END 2019-11-20 03:13 ==
LOC: ED 11-20 03:07
DX: I82.533 Chronic embolism and thrombosis of popliteal vein, bilateral (principal); I82.513 Chronic embolism and thrombosis of femoral vein, bilateral; I10 Essential (primary) hypertension; K21.9 Gastro-esophageal reflux disease without esophagitis; F17.210 Nicotine dependence, cigarettes, uncomplicated; Z90.49 Acquired absence of other specified parts of digestive tract; Z86.711 Personal history of pulmonary embolism
CPT/HCPCS: 36415; 80048; 82040; 83880; 85025; 85610; 85730; 93970; 96372; 99284; 99406; J1650

== ENCOUNTER 2019-11-28 20:56 | Observation (INO) | payer MEDICAID ==
[~2019-11-28] VITALS: Ht 157.5 cm; Wt 87.8 kg
[~2019-11-28 20:56] MED LIST changes: +ASCO100018 PO; -ASCO10004 PO
[2019-11-28] MEDS ORDERED: PRAV20TA2 PO (21:03)
[2019-11-28] MEDS ORDERED: GABA-826 PO (21:03)
[2019-11-28] MEDS ORDERED: HYDR-826 PO (21:03)
[2019-11-28] MEDS ORDERED: OMEP20CA20 PO (21:03)
[2019-11-28] MEDS ORDERED: TRAZ-96 PO (21:03)
[2019-11-28] MEDS ORDERED: APIX5TAB PO (21:03)
[2019-11-28] MEDS ORDERED: SERT-237 PO (21:03)
--- NOTE | 2019-11-28 21:07 | NUR ---
BIBA FOR BILATERAL LE EDEMA X3 WEEKS. PLACED ON CARDIAC AND VITALS MONITORS. FALL PRECAUTIONS IN PLACE.
[2019-11-28] MEDS ORDERED: MORPHINE SULFATE 4 MG/ML, 1ML ONE (21:22)
[2019-11-28] MEDS ORDERED: SODIUM CHLORIDE FLUSH 10ML SYR IVF ONE (21:30)
[2019-11-28] MEDS ORDERED: MORPHINE SULFATE 4 MG/ML, 1ML IVPush PRN (21:30)
[2019-11-28 21:37] LABS: BASOPHILS # (AUTO) 0.03 x10^3/uL (0-0.1); BASOPHILS % (AUTO) 1 % (0-1); EOSINOPHILS # (AUTO) 0.04 x10^3/uL (0-0.4); EOSINOPHILS % (AUTO) 1 % (1-7); LYMPHOCYTES # (AUTO) 0.88 x10^3/uL (1-3.4); LYMPHOCYTES % (AUTO) 21 % (22-44); MD NO; MEAN CORPUSCULAR HEMOGLOBIN 28.7 pg (27.0-34.8); MEAN CORPUSCULAR HGB CONC 32.5 g/dL (32.4-35.8); MEAN PLATELET VOLUME 7.5 fL (7.4-10.4); MONOCYTES # (AUTO) 0.26 x10^3/uL (0.2-0.8); MONOCYTES % (AUTO) 6 % (2-9); NEUTROPHILS # (AUTO) 3.08 x10^3/uL (1.8-6.8); NEUTROPHILS % (AUTO) 72 % (42-75); PLATELET COUNT 247 x10^3/uL (130-400); RED BLOOD COUNT 4.39 x10^6/uL (3.82-5.3); RED CELL DISTRIBUTION WIDTH 17.1 % (9.6-15.2)
[2019-11-28 21:48] LABS: ANION GAP 8 mmol/L (5-15); CALCIUM 8.5 mg/dL (8.5-10.1); CHLORIDE 107 mmol/L (98-107); CREATININE 0.99 mg/dL (0.55-1.02)
[2019-11-28 21:49] LABS: INTERNATIONAL NORMALIZED RATIO 0.98 (0.93-1.1); PROTHROMBIN TIME 10.4 Seconds (9.6-11.5)
--- NOTE | 2019-11-28 22:06 | NUR ---
US AT BEDSIDE.
[2019-11-28] MEDS ORDERED: ENOXAPARIN 80 MG/0.8 ML SQ ONE (23:00)
--- NOTE | 2019-11-28 23:00 | NUR ---
REPORT GIVEN TO SHERYL HUA.
[2019-11-28] MEDS ORDERED: ENOXAPARIN 80 MG/0.8 ML ONE (23:24)
--- NOTE | 2019-11-28 23:32 | NUR ---
Pt medicated per emar. Pt tolerated well.
--- NOTE | 2019-11-28 23:47 | NUR ---
Report to Piedad HUA
--- NOTE | 2019-11-28 23:48 | NUR ---
Report received from MELITA Madera. This RN to assume care.
--- NOTE | 2019-11-29 01:17 | NUR ---
Report given to MELITA Pete. Patient to be transferred to room 443.
[2019-11-29] MEDS ORDERED: ACETAMINOPHEN 325 MG TABLET PO PRN (02:00)
[2019-11-29] MEDS ORDERED: morphine SULFATE 10 MG/ML, 1ML IVPush PRN (02:00)
[2019-11-29] MEDS ORDERED: hydrALAzine 20 MG/ML, 1ML IVPush PRN (02:00)
[2019-11-29] MEDS ORDERED: TRAZODONE 50MG TABLET PO PRN (02:00)
[2019-11-29] MEDS ORDERED: ONDANSETRON 2MG/ML, 2ML IVPush PRN (02:00)
[2019-11-29] MEDS ORDERED: VITAMIN D PO (02:28)
[2019-11-29] MEDS ORDERED: VITAMIN B12 PO (02:28)
[2019-11-29 02:30] VITALS: BP 126/81
[2019-11-29 07:23] VITALS: BP 108/62
[2019-11-29] MEDS ORDERED: GABAPENTIN 100 MG CAPSULE PO SCH (09:00)
[2019-11-29] MEDS ORDERED: APIXABAN 5 MG TABLET PO SCH (09:00)
[2019-11-29] MEDS ORDERED: OMEPRAZOLE 20 MG CAPSULE.DR PO SCH (09:00)
[2019-11-29] MEDS ORDERED: SERTRALINE 50MG TABLET PO SCH (09:00)
[2019-11-29] MEDS ORDERED: PRAVASTATIN 20 MG TABLET PO SCH (09:00)
[2019-11-29] MEDS ORDERED: ACET325T26 PO (09:46)
[2019-11-29] MEDS ORDERED: hydrOXyzine 50MG TABLET ONE (09:48)
== END 2019-11-29 11:31 | disposition home or self-care (01) ==
LOC: ED 11-29 00:24 → EDIP 11-29 01:09 → INTOOBSV 11-29 01:09 → 4NW 11-29 01:53 → DCLOUNGE 11-29 11:23
PROVIDERS: ADMIT Family Medicine; ATTEND Family Medicine
DX: I82.403 Acute embolism and thrombosis of unspecified deep veins of lower extremity, bilateral (principal); I82.511 Chronic embolism and thrombosis of right femoral vein; I82.531 Chronic embolism and thrombosis of right popliteal vein; I82.532 Chronic embolism and thrombosis of left popliteal vein; I82.512 Chronic embolism and thrombosis of left femoral vein; M19.90 Unspecified osteoarthritis, unspecified site; I10 Essential (primary) hypertension; E78.5 Hyperlipidemia, unspecified; J45.909 Unspecified asthma, uncomplicated; G47.00 Insomnia, unspecified; K21.9 Gastro-esophageal reflux disease without esophagitis; F17.210 Nicotine dependence, cigarettes, uncomplicated; Z86.711 Personal history of pulmonary embolism; Z79.899 Other long term (current) drug therapy; Z79.01 Long term (current) use of anticoagulants; Z95.828 Presence of other vascular implants and grafts
CPT/HCPCS: 36415; 80048; 82040; 83880; 84443; 85025; 85610; 85730; 93005; 93970; 96372; 99285; G0378; J1650; Q0177

== ENCOUNTER 2019-12-04 19:32 | Emergency (ER) | payer MEDICAID ==
[~2019-12-04] VITALS: Ht 157.5 cm; Wt 87.0 kg
[~2019-12-04 19:32] MED LIST changes: +ACET325T26 PO; -ASCO100018 PO; +ASCO10004 PO; +GABA-826 PO; +OMEP20CA20 PO; +SERT-237 PO; +TRAZ-96 PO; +VITAMIN B12 PO; +VITAMIN D PO
--- NOTE | 2019-12-04 19:35 | NUR ---
pt BIB [facility] from c/o bilat LE swelling and chest pressure x4 days. pt denies SOB, denies nausea. no other c/o. reports that she has a hx of DVT but does not know the name of the blood thinner that she takes. upon admit pt is able to walk to the [facility] and is in no apparent resp. distress. pink warm and dry. no family at bedside
--- NOTE | 2019-12-04 19:57 | NUR ---
EKG has been to bedside. awaiting orders
--- NOTE | 2019-12-04 20:28 | NUR ---
CXR has been to bedside
[2019-12-04 20:53] LABS: BASOPHILS # (AUTO) 0.04 x10^3/uL (0-0.1); BASOPHILS % (AUTO) 1 % (0-1); EOSINOPHILS # (AUTO) 0.17 x10^3/uL (0-0.4); EOSINOPHILS % (AUTO) 4 % (1-7); LYMPHOCYTES # (AUTO) 0.65 x10^3/uL (1-3.4); LYMPHOCYTES % (AUTO) 16 % (22-44); MD NO; MEAN CORPUSCULAR HEMOGLOBIN 28.7 pg (27.0-34.8); MEAN CORPUSCULAR HGB CONC 32.3 g/dL (32.4-35.8); MEAN CORPUSCULAR VOLUME 88.9 fL (80-100); MEAN PLATELET VOLUME 7.6 fL (7.4-10.4); MONOCYTES # (AUTO) 0.32 x10^3/uL (0.2-0.8); MONOCYTES % (AUTO) 8 % (2-9); NEUTROPHILS # (AUTO) 2.97 x10^3/uL (1.8-6.8); NEUTROPHILS % (AUTO) 72 % (42-75); PLATELET COUNT 219 x10^3/uL (130-400); RED BLOOD COUNT 4.29 x10^6/uL (3.82-5.3); RED CELL DISTRIBUTION WIDTH 17.6 % (9.6-15.2)
[2019-12-04 21:06] LABS: ANION GAP 4 mmol/L (5-15); CALCIUM 8.7 mg/dL (8.5-10.1); CHLORIDE 113 mmol/L (98-107)
--- NOTE | 2019-12-04 21:11 | NUR ---
pt resting in position of comfort, talking on cell phone. no apparent distress. pt has walked to the BR without difficulty
[2019-12-04 21:12] LABS: ALANINE AMINOTRANSFERASE 17 U/L (12-78); ALKALINE PHOSPHATASE 70 U/L (45-117); BILIRUBIN,TOTAL 0.2 mg/dL (0.2-1.0); CREATININE 0.82 mg/dL (0.55-1.02); TOTAL PROTEIN 7.2 g/dL (6.4-8.2); TROPONIN I < 0.015 ng/mL (0.000-0.045)
[2019-12-04 22:26] VITALS: BP 113/65
== END 2019-12-04 22:29 | disposition home or self-care (01) ==
LOC: ED 22:05
DX: R07.89 Other chest pain (principal); K21.9 Gastro-esophageal reflux disease without esophagitis; I10 Essential (primary) hypertension; F17.290 Nicotine dependence, other tobacco product, uncomplicated; Z86.718 Personal history of other venous thrombosis and embolism
CPT/HCPCS: 36415; 71045; 80053; 83880; 84484; 85025; 93005; 99285

== ENCOUNTER 2019-12-09 19:59 | Emergency (ER) | payer MEDICAID ==
[~2019-12-09] VITALS: Ht 167.6 cm; Wt 89.8 kg
[2019-12-09 21:38] LABS: BASOPHILS # (AUTO) 0.06 x10^3/uL (0-0.1); BASOPHILS % (AUTO) 1 % (0-1); EOSINOPHILS # (AUTO) 0.16 x10^3/uL (0-0.4); EOSINOPHILS % (AUTO) 3 % (1-7); LYMPHOCYTES # (AUTO) 0.93 x10^3/uL (1-3.4); LYMPHOCYTES % (AUTO) 20 % (22-44); MD NO; MEAN CORPUSCULAR HEMOGLOBIN 28.5 pg (27.0-34.8); MEAN CORPUSCULAR HGB CONC 32.4 g/dL (32.4-35.8); MEAN CORPUSCULAR VOLUME 88.1 fL (80-100); MEAN PLATELET VOLUME 7.8 fL (7.4-10.4); MONOCYTES # (AUTO) 0.37 x10^3/uL (0.2-0.8); MONOCYTES % (AUTO) 8 % (2-9); NEUTROPHILS # (AUTO) 3.13 x10^3/uL (1.8-6.8); NEUTROPHILS % (AUTO) 67 % (42-75); PLATELET COUNT 231 x10^3/uL (130-400)
[2019-12-09 21:39] LABS: ALBUMIN 3.1 g/dL (3.4-5.0); ANION GAP 4 mmol/L (5-15); CALCIUM 8.2 mg/dL (8.5-10.1); CHLORIDE 110 mmol/L (98-107); CREATININE 0.83 mg/dL (0.55-1.02)
[2019-12-09 21:40] VITALS: BP 115/75
[2019-12-09 21:42] LABS: TROPONIN I < 0.015 ng/mL (0.000-0.045)
== END 2019-12-09 22:32 | disposition home or self-care (01) ==
LOC: ED 22:27
DX: R07.89 Other chest pain (principal); R60.0 Localized edema; I50.9 Heart failure, unspecified; I11.0 Hypertensive heart disease with heart failure; K21.9 Gastro-esophageal reflux disease without esophagitis; F17.290 Nicotine dependence, other tobacco product, uncomplicated; Z86.718 Personal history of other venous thrombosis and embolism
CPT/HCPCS: 36415; 71045; 80048; 82040; 83880; 84484; 85025; 93005; 99285

== ENCOUNTER 2019-12-11 22:25 | Emergency (ER) | payer MEDICAID ==
[~2019-12-11] VITALS: Ht 160 cm; Wt 93.7 kg
[2019-12-11 22:30] VITALS: BP 119/61
[2019-12-11] MEDS ORDERED: FUROSEMIDE 40 MG TABLET PO ONE (23:25)
[2019-12-11] MEDS ORDERED: FUROSEMIDE 40 MG TABLET ONE (23:48)
--- NOTE | 2019-12-12 00:03 | NUR ---
pT HERE FOR MEDICATION REFILL. Patient/Caregiver given discharge instructions and they have confirmed that they understand the instructions. Patient ambulatory with steady gait.
--- NOTE | 2019-12-12 00:04 | NUR ---
pT HERE FOR MEDICATION REFILL. Patient/Caregiver given discharge instructions and they have confirmed that they understand the instructions. Patient ambulatory with steady gait.
--- NOTE | 2019-12-12 00:07 | NUR ---
Pt medicated per emar, pt given 80mg of lasix that is a home medication. Pt given taxi voucher for a safe dc.
== END 2019-12-12 00:12 | disposition home or self-care (01) ==
LOC: ED 23:13
DX: R60.0 Localized edema (principal); I10 Essential (primary) hypertension; K21.9 Gastro-esophageal reflux disease without esophagitis; M19.90 Unspecified osteoarthritis, unspecified site; Z86.718 Personal history of other venous thrombosis and embolism; Z90.49 Acquired absence of other specified parts of digestive tract
CPT/HCPCS: 99283

== ENCOUNTER 2019-12-21 20:30 | Emergency (ER) | payer MEDICAID ==
[~2019-12-21] VITALS: Ht 160 cm; Wt 97.3 kg
[2019-12-21 20:31] VITALS: BP 117/67
[2019-12-21 21:45] LABS: BASOPHILS # (AUTO) 0.04 x10^3/uL (0-0.1); BASOPHILS % (AUTO) 1 % (0-1); EOSINOPHILS # (AUTO) 0.17 x10^3/uL (0-0.4); EOSINOPHILS % (AUTO) 4 % (1-7); LYMPHOCYTES # (AUTO) 1.05 x10^3/uL (1-3.4); LYMPHOCYTES % (AUTO) 24 % (22-44); MD NO; MEAN CORPUSCULAR HEMOGLOBIN 28.7 pg (27.0-34.8); MEAN CORPUSCULAR HGB CONC 32.6 g/dL (32.4-35.8); MEAN CORPUSCULAR VOLUME 88.1 fL (80-100); MEAN PLATELET VOLUME 7.7 fL (7.4-10.4); MONOCYTES % (AUTO) 9 % (2-9); NEUTROPHILS # (AUTO) 2.72 x10^3/uL (1.8-6.8); NEUTROPHILS % (AUTO) 62 % (42-75); PLATELET COUNT 200 x10^3/uL (130-400); RED BLOOD COUNT 4.09 x10^6/uL (3.82-5.3)
[2019-12-21 21:57] LABS: ALBUMIN 2.9 g/dL (3.4-5.0); ANION GAP 4 mmol/L (5-15); CALCIUM 7.8 mg/dL (8.5-10.1); CHLORIDE 110 mmol/L (98-107); INTERNATIONAL NORMALIZED RATIO 0.98 (0.93-1.1); PROTHROMBIN TIME 10.1 Seconds (9.6-11.5)
--- NOTE | 2019-12-21 22:00 | NUR ---
REPORT TO ROSY HUA.
[2019-12-21 22:03] LABS: ALANINE AMINOTRANSFERASE 19 U/L (12-78); ALKALINE PHOSPHATASE 70 U/L (45-117); BILIRUBIN,TOTAL 0.3 mg/dL (0.2-1.0); CREATININE 0.83 mg/dL (0.55-1.02); TROPONIN I < 0.015 ng/mL (0.000-0.045)
--- NOTE | 2019-12-21 22:40 | NUR ---
PATIENT AMBULATORY TO RESTROOM WITHOUT COMPLICATIONS. TOLERATED WELL, STEADY GAIT. NO NOTED ADDITIONAL NEEDS AT THIS TIME.
== END 2019-12-21 23:26 | disposition home or self-care (01) ==
LOC: ED 22:23
DX: I82.533 Chronic embolism and thrombosis of popliteal vein, bilateral (principal); K21.9 Gastro-esophageal reflux disease without esophagitis; I10 Essential (primary) hypertension; Z90.49 Acquired absence of other specified parts of digestive tract
CPT/HCPCS: 36415; 80053; 83880; 84484; 85025; 85610; 85730; 93005; 99284

== ENCOUNTER 2019-12-29 17:27 | Emergency (ER) | payer MEDICAID ==
[~2019-12-29] VITALS: Ht 154.9 cm; Wt 88.0 kg
[2019-12-29 19:41] LABS: BASOPHILS # (AUTO) 0.02 x10^3/uL (0-0.1); BASOPHILS % (AUTO) 0 % (0-1); EOSINOPHILS # (AUTO) 0.11 x10^3/uL (0-0.4); EOSINOPHILS % (AUTO) 2 % (1-7); LYMPHOCYTES % (AUTO) 12 % (22-44); MD NO; MEAN CORPUSCULAR HEMOGLOBIN 28.7 pg (27.0-34.8); MEAN CORPUSCULAR HGB CONC 32.5 g/dL (32.4-35.8); MEAN CORPUSCULAR VOLUME 88.4 fL (80-100); MEAN PLATELET VOLUME 7.7 fL (7.4-10.4); MONOCYTES # (AUTO) 0.32 x10^3/uL (0.2-0.8); MONOCYTES % (AUTO) 6 % (2-9); NEUTROPHILS % (AUTO) 79 % (42-75); PLATELET COUNT 227 x10^3/uL (130-400); RED CELL DISTRIBUTION WIDTH 16.9 % (9.6-15.2)
[2019-12-29 19:51] LABS: ALBUMIN 3.2 g/dL (3.4-5.0); ANION GAP 3 mmol/L (5-15); CHLORIDE 109 mmol/L (98-107)
[2019-12-29 19:55] LABS: CREATININE 0.92 mg/dL (0.55-1.02)
[2019-12-29 19:56] LABS: ALANINE AMINOTRANSFERASE 21 U/L (12-78); ALKALINE PHOSPHATASE 80 U/L (45-117); BILIRUBIN,TOTAL 0.5 mg/dL (0.2-1.0); TOTAL PROTEIN 7.9 g/dL (6.4-8.2)
--- NOTE | 2019-12-29 21:12 | NUR ---
PT HAVING EKG DONE. PT DENIES CP OR SOB. PT HAS BEEN TAKING DOUBLE THE DOSE OF HER ELIQUIS TO REDUCE THE SWELLING IN HER LEGS SECONDARY TO DVT IN BOTH COMMON FEMORAL VEINS PER US TODAY.
[2019-12-29] MEDS ORDERED: CYAN500T54 PO (21:20)
[2019-12-29] MEDS ORDERED: CHOL10003 PO (21:20)
[2019-12-29] MEDS ORDERED: CYCL-259 PO (21:20)
[2019-12-29] MEDS ORDERED: FURO-92 PO (21:20)
[2019-12-29] MEDS ORDERED: POTA20TA89 PO (21:20)
[2019-12-29 22:00] VITALS: BP 127/72
--- NOTE | 2019-12-29 22:02 | NUR ---
WALT RODRIGUEZ PLACED PER DR. KHAN.
== END 2019-12-29 22:04 | disposition home or self-care (01) ==
LOC: ED 20:47
DX: I82.413 Acute embolism and thrombosis of femoral vein, bilateral (principal); R60.0 Localized edema; K21.9 Gastro-esophageal reflux disease without esophagitis; I21.9 Acute myocardial infarction, unspecified; M19.90 Unspecified osteoarthritis, unspecified site; Z86.718 Personal history of other venous thrombosis and embolism
CPT/HCPCS: 36415; 80053; 85025; 93005; 93970; 99285

== ENCOUNTER 2020-01-06 18:45 | Emergency (ER) | payer MEDICAID ==
[~2020-01-06] VITALS: Ht 165.1 cm; Wt 87.0 kg
[~2020-01-06 18:45] MED LIST changes: +ASCO100018 PO; -ASCO10004 PO; +CHOL10003 PO; +CYCL-259 PO; +FURO-92 PO; +POTA20TA89 PO
[2020-01-06 18:50] VITALS: BP 150/80
--- NOTE | 2020-01-06 18:51 | NUR ---
THIS IS A 54 YO F BIB EMS W/ C/O BILAT LWR EXTREMITY EDEMA, N/V. PT SEEN LAST WEEK FOR THE SAME. RECEIVED 4MG ZOFRAN ODT HOME ENERGY RATER BY EMS. PT REPORTS TAKING 40MG LASIX PO DAILY. PT RESTING ON GURNEY W/ CALL LIGHT IN REACH, CONNECTED TO ALL MONITORING, VSS, NADN. AWAITING ED EVAL.
--- NOTE | 2020-01-06 18:57 | NUR ---
REPORT GIVEN TO MURTAZA HUA. PT RESTING ON [employer] W/ CALL LIGHT IN REACH, RESP EVEN AND UNLABORED, KAREL.
[2020-01-06] MEDS ORDERED: FUROSEMIDE 40 MG/4 ML IV ONE (19:00)
[2020-01-06] MEDS ORDERED: FUROSEMIDE 40 MG/4 ML ONE (19:14)
--- NOTE | 2020-01-06 19:25 | NUR ---
LINE INSERTED, LASIX GIVEN. LABS PENDING. BEDSIDE COMODE WITHIN REACH. PATIENT WAS INSTRUCTED TO USE CALL MICHAEL IF ASSISTANCE NEEDED.
[2020-01-06 19:27] LABS: BASOPHILS # (AUTO) 0.02 x10^3/uL (0-0.1); BASOPHILS % (AUTO) 1 % (0-1); EOSINOPHILS # (AUTO) 0.16 x10^3/uL (0-0.4); EOSINOPHILS % (AUTO) 4 % (1-7); LYMPHOCYTES # (AUTO) 0.82 x10^3/uL (1-3.4); LYMPHOCYTES % (AUTO) 21 % (22-44); MD NO; MEAN CORPUSCULAR HEMOGLOBIN 28.7 pg (27.0-34.8); MEAN CORPUSCULAR HGB CONC 32.5 g/dL (32.4-35.8); MEAN CORPUSCULAR VOLUME 88.1 fL (80-100); MEAN PLATELET VOLUME 7.4 fL (7.4-10.4); MONOCYTES % (AUTO) 10 % (2-9); NEUTROPHILS # (AUTO) 2.61 x10^3/uL (1.8-6.8); NEUTROPHILS % (AUTO) 65 % (42-75); PLATELET COUNT 210 x10^3/uL (130-400); RED BLOOD COUNT 4.04 x10^6/uL (3.82-5.3); RED CELL DISTRIBUTION WIDTH 16.7 % (9.6-15.2)
[2020-01-06 19:35] LABS: ALANINE AMINOTRANSFERASE 17 U/L (12-78); ANION GAP 4 mmol/L (5-15); CALCIUM 8.7 mg/dL (8.5-10.1); CHLORIDE 109 mmol/L (98-107); CREATININE 0.86 mg/dL (0.55-1.02)
[2020-01-06 19:38] LABS: ALKALINE PHOSPHATASE 67 U/L (45-117); BILIRUBIN,TOTAL 0.3 mg/dL (0.2-1.0); TOTAL PROTEIN 7.2 g/dL (6.4-8.2)
--- NOTE | 2020-01-06 20:27 | NUR ---
PATIENT UPSET THAT SHE IS GOING HOME. MD AWARE. SHE APPEARS IN NO APPARENT DISTRESS. PREPARING FOR DISCHARGE VIA CAB.
== END 2020-01-06 21:07 | disposition home or self-care (01) ==
LOC: ED 19:19
DX: I82.503 Chronic embolism and thrombosis of unspecified deep veins of lower extremity, bilateral (principal); R60.0 Localized edema; K21.9 Gastro-esophageal reflux disease without esophagitis; I10 Essential (primary) hypertension; Z90.49 Acquired absence of other specified parts of digestive tract; Z87.891 Personal history of nicotine dependence
CPT/HCPCS: 36415; 80053; 85025; 96374; 99283; J1940

== ENCOUNTER 2020-01-13 20:50 | Emergency (ER) | payer MEDICAID ==
[~2020-01-13] VITALS: Ht 165.1 cm; Wt 96.9 kg
[2020-01-13 20:55] VITALS: BP 108/67
--- NOTE | 2020-01-13 21:11 | NUR ---
erp at bedside
--- NOTE | 2020-01-13 21:25 | NUR ---
pt to us
[2020-01-13 22:35] LABS: BASOPHILS # (AUTO) 0.02 x10^3/uL (0-0.1); BASOPHILS % (AUTO) 0 % (0-1); EOSINOPHILS % (AUTO) 2 % (1-7); LYMPHOCYTES # (AUTO) 0.67 x10^3/uL (1-3.4); LYMPHOCYTES % (AUTO) 15 % (22-44); MD NO; MEAN CORPUSCULAR HEMOGLOBIN 27.9 pg (27.0-34.8); MEAN CORPUSCULAR HGB CONC 31.8 g/dL (32.4-35.8); MEAN CORPUSCULAR VOLUME 87.9 fL (80-100); MEAN PLATELET VOLUME 7.4 fL (7.4-10.4); MONOCYTES # (AUTO) 0.36 x10^3/uL (0.2-0.8); MONOCYTES % (AUTO) 8 % (2-9); NEUTROPHILS # (AUTO) 3.38 x10^3/uL (1.8-6.8); NEUTROPHILS % (AUTO) 75 % (42-75); PLATELET COUNT 227 x10^3/uL (130-400); RED BLOOD COUNT 4.47 x10^6/uL (3.82-5.3); RED CELL DISTRIBUTION WIDTH 16.6 % (9.6-15.2)
[2020-01-13 22:46] LABS: ALBUMIN 3.1 g/dL (3.4-5.0); ANION GAP 3 mmol/L (5-15); CALCIUM 8.7 mg/dL (8.5-10.1); CHLORIDE 109 mmol/L (98-107)
[2020-01-13 22:47] LABS: CREATININE 1.01 mg/dL (0.55-1.02)
--- NOTE | 2020-01-13 22:58 | NUR ---
PT UP TO BSC NO ASSIST
[2020-01-13] MEDS ORDERED: FUROSEMIDE 40 MG TABLET ONE (23:19)
--- NOTE | 2020-01-13 23:27 | NUR ---
Patient/Caregiver given discharge instructions and they have confirmed that they understand the instructions.
[2020-01-14] MEDS ORDERED: FUROSEMIDE 10 MG/ML ORAL SOL PO SCH (09:00)
== END 2020-01-13 23:28 | disposition home or self-care (01) ==
LOC: ED 21:10
DX: I82.511 Chronic embolism and thrombosis of right femoral vein (principal); R60.0 Localized edema; I10 Essential (primary) hypertension; K21.9 Gastro-esophageal reflux disease without esophagitis; M19.90 Unspecified osteoarthritis, unspecified site; Z90.49 Acquired absence of other specified parts of digestive tract; Z87.891 Personal history of nicotine dependence
CPT/HCPCS: 36415; 80048; 82040; 85025; 93970; 99284

== ENCOUNTER 2020-01-24 22:05 | Emergency (ER) | payer MEDICAID ==
[2020-01-24 23:05] LABS: BASOPHILS # (AUTO) 0.04 x10^3/uL (0-0.1); BASOPHILS % (AUTO) 1 % (0-1); EOSINOPHILS # (AUTO) 0.18 x10^3/uL (0-0.4); EOSINOPHILS % (AUTO) 4 % (1-7); LYMPHOCYTES # (AUTO) 0.94 x10^3/uL (1-3.4); LYMPHOCYTES % (AUTO) 20 % (22-44); MD NO; MEAN CORPUSCULAR HEMOGLOBIN 28.1 pg (27.0-34.8); MEAN CORPUSCULAR HGB CONC 31.9 g/dL (32.4-35.8); MEAN PLATELET VOLUME 7.1 fL (7.4-10.4); MONOCYTES # (AUTO) 0.48 x10^3/uL (0.2-0.8); MONOCYTES % (AUTO) 10 % (2-9); NEUTROPHILS # (AUTO) 2.98 x10^3/uL (1.8-6.8); NEUTROPHILS % (AUTO) 65 % (42-75); PLATELET COUNT 213 x10^3/uL (130-400); RED BLOOD COUNT 4.38 x10^6/uL (3.82-5.3); RED CELL DISTRIBUTION WIDTH 16.1 % (9.6-15.2)
[2020-01-24 23:14] LABS: ALBUMIN 3.2 g/dL (3.4-5.0); ANION GAP 7 mmol/L (5-15); CALCIUM 8.4 mg/dL (8.5-10.1); CHLORIDE 109 mmol/L (98-107); CREATININE 0.95 mg/dL (0.55-1.02)
[2020-01-24 23:55] VITALS: BP 121/73
== END 2020-01-24 23:57 | disposition home or self-care (01) ==
LOC: ED 22:29
DX: R60.0 Localized edema (principal); I10 Essential (primary) hypertension; K21.9 Gastro-esophageal reflux disease without esophagitis; Z86.718 Personal history of other venous thrombosis and embolism; Z90.49 Acquired absence of other specified parts of digestive tract; Z87.891 Personal history of nicotine dependence
CPT/HCPCS: 36415; 80048; 82040; 85025; 99283

== ENCOUNTER 2020-01-28 17:43 | Emergency (ER) | payer MEDICAID ==
[~2020-01-28] VITALS: Ht 152.4 cm; Wt 98.0 kg
--- NOTE | 2020-01-28 17:47 | NUR ---
ARRIVES WITH [facility] FROM HOME PATIENT HAS BLE PAIN AND SWELLING. SHE IS ABLE TO WALK.
--- NOTE | 2020-01-28 18:37 | NUR ---
awaiting ultrasound. got patient up to bathroom, good on feet.
[2020-01-28 18:43] VITALS: BP 133/78
--- NOTE | 2020-01-28 18:59 | NUR ---
patient in ultrasound. report to rodri HUA
--- NOTE | 2020-01-28 19:08 | NUR ---
assumed care of pt. pt in US at this time
--- NOTE | 2020-01-28 19:40 | NUR ---
back from US, pt resting comfortably, updated on POC
== END 2020-01-28 21:46 | disposition home or self-care (01) ==
LOC: ED 17:56
DX: I82.593 Chronic embolism and thrombosis of other specified deep vein of lower extremity, bilateral (principal); R60.0 Localized edema; E66.01 Morbid (severe) obesity due to excess calories; I10 Essential (primary) hypertension; Z68.41 Body mass index [BMI] 40.0-44.9, adult; Z87.891 Personal history of nicotine dependence
CPT/HCPCS: 93970; 99284

== ENCOUNTER 2020-02-03 13:38 | Emergency (ER) | payer MEDICAID ==
[~2020-02-03] VITALS: Ht 165.1 cm; Wt 89.0 kg
[2020-02-03 13:44] VITALS: BP 119/94
== END 2020-02-03 16:06 | disposition home or self-care (01) ==
LOC: ED 14:41
DX: R60.0 Localized edema (principal); I87.2 Venous insufficiency (chronic) (peripheral); K21.9 Gastro-esophageal reflux disease without esophagitis; Z86.711 Personal history of pulmonary embolism; Z86.718 Personal history of other venous thrombosis and embolism
CPT/HCPCS: 99283

== ENCOUNTER 2020-02-11 21:53 | Emergency (ER) | payer MEDICAID ==
[~2020-02-11] VITALS: Ht 167.6 cm; Wt 106.1 kg
[2020-02-11 21:57] VITALS: BP 126/62
[2020-02-11] MEDS ORDERED: ONDANSETRON ODT 4 MG ONE (22:06)
[2020-02-11] MEDS ORDERED: FUROSEMIDE 40 MG TABLET ONE (22:06)
--- NOTE | 2020-02-11 22:10 | NUR ---
MEDS ADMIN PER JUL. PT AMBULATED TO RESTROOM WITH STEADY GAIT.
[2020-02-11] MEDS ORDERED: FUROSEMIDE 40 MG TABLET PO ONE (22:30)
[2020-02-11] MEDS ORDERED: ONDANSETRON ODT 4 MG PO ONE (22:30)
[2020-02-11] MEDS ORDERED: FUROSEMIDE 80 MG TABLET PO ONE (22:30)
== END 2020-02-11 22:26 | disposition home or self-care (01) ==
LOC: ED 21:54
DX: I87.2 Venous insufficiency (chronic) (peripheral) (principal); R94.31 Abnormal electrocardiogram [ECG] [EKG]; I10 Essential (primary) hypertension; K21.9 Gastro-esophageal reflux disease without esophagitis; Z86.718 Personal history of other venous thrombosis and embolism; Z90.49 Acquired absence of other specified parts of digestive tract
CPT/HCPCS: 93005; 99283; Q0162

== ENCOUNTER 2020-02-20 21:27 | Emergency (ER) | payer MEDICAID ==
[~2020-02-20] VITALS: Ht 152.4 cm; Wt 90.0 kg
--- NOTE | 2020-02-20 21:50 | NUR ---
55 year old female to ed [facility] for leg swelling w a pmhx of dvt. she is currently taking xarelto but swelling is worsened. She denies SOB, chest pain, fever, or chills.
[2020-02-20 22:02] LABS: BASOPHILS % (AUTO) 1 % (0-1); EOSINOPHILS % (AUTO) 4 % (1-7); LYMPHOCYTES % (AUTO) 20 % (22-44); MEAN CORPUSCULAR HEMOGLOBIN 27.2 pg (27.0-34.8); MEAN CORPUSCULAR HGB CONC 31.7 g/dL (32.4-35.8); MEAN PLATELET VOLUME 7.4 fL (7.4-10.4); MONOCYTES % (AUTO) 10 % (2-9); NEUTROPHILS % (AUTO) 65 % (42-75); PLATELET COUNT 197 x10^3/uL (130-400); RED BLOOD COUNT 4.28 x10^6/uL (3.82-5.3); RED CELL DISTRIBUTION WIDTH 15.4 % (9.6-15.2)
[2020-02-20 22:04] LABS: ALBUMIN 3.2 g/dL (3.4-5.0); ANION GAP 4 mmol/L (5-15); CALCIUM 8.6 mg/dL (8.5-10.1); CHLORIDE 108 mmol/L (98-107); CREATININE 0.94 mg/dL (0.55-1.02); INTERNATIONAL NORMALIZED RATIO 0.97 (0.93-1.1); PROTHROMBIN TIME 10.3 Seconds (9.6-11.5)
[2020-02-20 22:06] LABS: MD NO
--- NOTE | 2020-02-20 22:25 | NUR ---
ultrasound at bedside.
[2020-02-21 00:10] VITALS: BP 116/63
== END 2020-02-21 00:21 | disposition home or self-care (01) ==
LOC: ED 21:50
DX: I82.513 Chronic embolism and thrombosis of femoral vein, bilateral (principal); I82.533 Chronic embolism and thrombosis of popliteal vein, bilateral; R60.0 Localized edema; I10 Essential (primary) hypertension; Z90.49 Acquired absence of other specified parts of digestive tract
CPT/HCPCS: 36415; 80048; 82040; 85025; 85610; 85730; 93970; 99284

== ENCOUNTER 2020-03-02 00:12 | Emergency (ER) | payer MEDICAID ==
[~2020-03-02] VITALS: Ht 165.1 cm; Wt 88.0 kg
--- NOTE | 2020-03-02 01:39 | NUR ---
VSS. A&oX4. C/O PAIN, REDNESS, SWELLING TO BILAT LOWER EXT FOR TWO MONTHS.
[2020-03-02 02:17] LABS: ALBUMIN 3.2 g/dL (3.4-5.0); ANION GAP 3 mmol/L (5-15); CALCIUM 8.6 mg/dL (8.5-10.1); CHLORIDE 110 mmol/L (98-107); CREATININE 0.81 mg/dL (0.55-1.02)
[2020-03-02 02:24] LABS: BASOPHILS % (AUTO) 1 % (0-1); EOSINOPHILS % (AUTO) 7 % (1-7); LYMPHOCYTES % (AUTO) 15 % (22-44); MEAN CORPUSCULAR HEMOGLOBIN 27.2 pg (27.0-34.8); MEAN CORPUSCULAR HGB CONC 31.8 g/dL (32.4-35.8); MEAN PLATELET VOLUME 7.2 fL (7.4-10.4); MONOCYTES % (AUTO) 12 % (2-9); NEUTROPHILS % (AUTO) 65 % (42-75); PLATELET COUNT 205 x10^3/uL (130-400); RED BLOOD COUNT 4.25 x10^6/uL (3.82-5.3); RED CELL DISTRIBUTION WIDTH 15.7 % (9.6-15.2)
[2020-03-02 02:28] LABS: MD NO
[2020-03-02 03:21] VITALS: BP 127/88
== END 2020-03-02 03:24 | disposition home or self-care (01) ==
LOC: ED 00:42
DX: R60.0 Localized edema (principal); I82.509 Chronic embolism and thrombosis of unspecified deep veins of unspecified lower extremity; K21.9 Gastro-esophageal reflux disease without esophagitis; I10 Essential (primary) hypertension; Z79.01 Long term (current) use of anticoagulants; Z86.711 Personal history of pulmonary embolism; Z90.49 Acquired absence of other specified parts of digestive tract
CPT/HCPCS: 36415; 80048; 82040; 85025; 99283

== ENCOUNTER 2020-03-31 21:33 | Emergency (ER) | payer MEDICAID ==
[~2020-03-31] VITALS: Ht 165.1 cm; Wt 96.3 kg
[~2020-03-31 21:33] MED LIST changes: +CYAN500T53 PO; -CYAN500T54 PO
[2020-03-31 21:34] VITALS: BP 145/82
--- NOTE | 2020-03-31 21:55 | NUR ---
this is a 55 yr old female her for lower leg swelling x 5 days. pt presents axox4 and nadn. pt taking all home meds as directed. pt has pitting edema to lower extremities. doppler pulses found and charted.
--- NOTE | 2020-03-31 22:17 | NUR ---
report and care assumed from offgoing RN
--- NOTE | 2020-03-31 22:22 | NUR ---
PT UP TO RESTROOM WITH STANDBY ASSISTANCE, NO WEIGHT BEARING ASSITANCE NECESSARY. GAIT STRONG AND INDEPENDENT. DENIES ANY FURTHER NEEDS OR CONCERNS AT THIS TIME, CALL LIGHT IN REACH.
--- NOTE | 2020-03-31 23:35 | NUR ---
tet hose placed to bilateral lower legs. pt tolerated well. ambulatory. discharge instructions given, and understood.
== END 2020-03-31 23:37 | disposition home or self-care (01) ==
LOC: ED 22:11
DX: G89.29 Other chronic pain (principal); M79.662 Pain in left lower leg; M79.661 Pain in right lower leg; R60.0 Localized edema; Z72.9 Problem related to lifestyle, unspecified; I10 Essential (primary) hypertension; K21.9 Gastro-esophageal reflux disease without esophagitis; Z86.718 Personal history of other venous thrombosis and embolism; Z86.711 Personal history of pulmonary embolism; Z79.01 Long term (current) use of anticoagulants; Z90.49 Acquired absence of other specified parts of digestive tract
CPT/HCPCS: 99283

== ENCOUNTER 2020-05-09 23:12 | Emergency (ER) | payer MEDICAID ==
[~2020-05-09] VITALS: Ht 152.4 cm; Wt 100.0 kg
[~2020-05-09 23:12] MED LIST changes: -CYAN500T53 PO; +CYAN500T7 PO; -ESCI10TA PO; +ESCI10TA5 PO; +FUROSEMIDE 40 MG TABLET PO ONE
--- NOTE | 2020-05-09 23:19 | NUR ---
BIBA FOR "MY LEGS ARE LEAKING". CC OF BILAT LOWER LEG AND NON PITTING PEDAL EDEMA WITH WEEPING PRESENT. 4+ EDEMA AND REDNESS NOTED. PT ABLE TO WIGGLE TOES AND PER EMS REPORT IS AMBULATORY. PT STATES SHE HAS BEEN THROWING UP HER WATER PILL SO SHE HASNT TAKEN IT IN A MONTH.
[2020-05-09] MEDS ORDERED: FUROSEMIDE 40 MG TABLET ONE (23:39)
--- NOTE | 2020-05-09 23:59 | NUR ---
SON AT BEDSIDE
[2020-05-10 00:19] VITALS: BP 130/86
== END 2020-05-10 00:22 | disposition home or self-care (01) ==
LOC: ED 05-10 00:05
DX: R60.0 Localized edema (principal); L03.115 Cellulitis of right lower limb; F17.210 Nicotine dependence, cigarettes, uncomplicated; I10 Essential (primary) hypertension; K21.9 Gastro-esophageal reflux disease without esophagitis; Z72.9 Problem related to lifestyle, unspecified; Z88.5 Allergy status to narcotic agent; Z86.711 Personal history of pulmonary embolism; Z86.718 Personal history of other venous thrombosis and embolism
CPT/HCPCS: 99283; 99406

== ENCOUNTER 2020-06-09 18:10 | Emergency (ER) | payer MEDICAID ==
[~2020-06-09] VITALS: Ht 157.5 cm; Wt 111.8 kg
[~2020-06-09 18:10] MED LIST changes: -CYCL-259 PO; +CYCL10TA2 PO; -ESCI10TA5 PO; +ESCI10TA97 PO; -FUROSEMIDE 40 MG TABLET PO ONE; -OXYC-302 PO; +OXYC1TAB14 PO
--- NOTE | 2020-06-09 18:25 | NUR ---
ANN LUZ [phone]
--- NOTE | 2020-06-09 18:29 | NUR ---
Pt to imaging.
[2020-06-09 18:44] LABS: BASOPHILS % (AUTO) 1 % (0-1); EOSINOPHILS % (AUTO) 4 % (1-7); LYMPHOCYTES % (AUTO) 15 % (22-44); MEAN CORPUSCULAR HEMOGLOBIN 27.4 pg (27.0-34.8); MEAN CORPUSCULAR HGB CONC 32.7 g/dL (32.4-35.8); MEAN PLATELET VOLUME 7.2 fL (7.4-10.4); MONOCYTES % (AUTO) 8 % (2-9); NEUTROPHILS % (AUTO) 72 % (42-75); PLATELET COUNT 189 x10^3/uL (130-400); RED BLOOD COUNT 4.55 x10^6/uL (3.82-5.3); RED CELL DISTRIBUTION WIDTH 17.6 % (9.6-15.2)
[2020-06-09 18:47] LABS: ALANINE AMINOTRANSFERASE 28 U/L (12-78); ALBUMIN 3.2 g/dL (3.4-5.0); ANION GAP 5 mmol/L (5-15); CALCIUM 8.4 mg/dL (8.5-10.1); CHLORIDE 110 mmol/L (98-107); CREATININE 0.93 mg/dL (0.55-1.02)
[2020-06-09 18:49] LABS: ALKALINE PHOSPHATASE 89 U/L (45-117); BILIRUBIN,TOTAL 0.2 mg/dL (0.2-1.0); TOTAL PROTEIN 7.8 g/dL (6.4-8.2)
[2020-06-09 18:52] LABS: MD NO
[2020-06-09] MEDS ORDERED: NEOSPORIN OINT. PKT 1 PACKET ONE (19:59)
[2020-06-09 20:40] VITALS: BP 145/79
--- NOTE | 2020-06-09 20:41 | NUR ---
Pt wound dressed by EMT. DC'd with written and verbal instructions. Pt states she understands. Pt ambulatory out of ED without difficulty and home with a taxi voucher.
== END 2020-06-09 20:43 | disposition home or self-care (01) ==
LOC: ED 20:41
DX: I82.512 Chronic embolism and thrombosis of left femoral vein (principal); Z48.00 Encounter for change or removal of nonsurgical wound dressing; G89.29 Other chronic pain; M79.604 Pain in right leg; I10 Essential (primary) hypertension; K21.9 Gastro-esophageal reflux disease without esophagitis; F17.210 Nicotine dependence, cigarettes, uncomplicated; Z86.711 Personal history of pulmonary embolism; Z90.49 Acquired absence of other specified parts of digestive tract
CPT/HCPCS: 36415; 80053; 85025; 93970; 99284; 99406

== ENCOUNTER 2020-07-03 00:28 | Emergency (ER) | payer MEDICAID, OTHER ==
[~2020-07-03] VITALS: Ht 165.1 cm; Wt 109.6 kg
--- NOTE | 2020-07-03 00:43 | NUR ---
patient ambulated to ER room with steady gait. open wound on RLE lateral side with serous drainage. 2 DOC guards at bedside. patient cooperative with care. call sanchez in reach. safety maintained. patient has DOC shackles in place. will continue to monitor.
--- NOTE | 2020-07-03 01:45 | NUR ---
patient resting in bed in NAD. BP's resulting hypotensive at times 80's-/40's but when BP cuff repositioned, BP's stable 90's/40's. Alecia MILLAN notified and okay to proceed with discharge. will continue to monitor.
[2020-07-03 01:49] VITALS: BP 97/49
--- NOTE | 2020-07-03 02:26 | NUR ---
discharge instructions reviewed with patient and DOC guards at bedside. no further needs at this time. no questions. steady gait to DOC escort. cooperative. prescription handed to DOC guard. also, printed home med list provided with dc instructions and handed to DOC guards. patient is not prescribed these medications while in nursing home.
== END 2020-07-03 02:31 | disposition home or self-care (01) ==
LOC: ED 00:57
DX: L03.116 Cellulitis of left lower limb (principal); L03.115 Cellulitis of right lower limb; R60.0 Localized edema; I10 Essential (primary) hypertension; K21.9 Gastro-esophageal reflux disease without esophagitis; Z86.718 Personal history of other venous thrombosis and embolism
CPT/HCPCS: 99283

== ENCOUNTER 2020-08-27 22:18 | Emergency (ER) | payer MEDICAID, OTHER ==
[~2020-08-27] VITALS: Ht 152.4 cm; Wt 109.2 kg
--- NOTE | 2020-08-27 22:52 | NUR ---
pt here with chronic lower ex swelling/cellulitis. pt resting in gurney, resp even/unlabored, laughing and joking with this rn. cms intact in lower ex. at bedside. awaiting us
--- NOTE | 2020-08-27 23:20 | NUR ---
ULTRASOUND AT BEDSIDE
[2020-08-28] VITALS: BP 124/54
== END 2020-08-28 00:51 | disposition home or self-care (01) ==
LOC: ED 22:31
DX: I82.511 Chronic embolism and thrombosis of right femoral vein (principal); K21.9 Gastro-esophageal reflux disease without esophagitis; I10 Essential (primary) hypertension; Z90.49 Acquired absence of other specified parts of digestive tract; Z88.5 Allergy status to narcotic agent
CPT/HCPCS: 99284

== ENCOUNTER 2020-09-23 11:21 | Emergency (ER) | payer MEDICAID ==
--- NOTE | 2020-09-23 12:14 | NUR ---
NIL X 1
--- NOTE | 2020-09-23 12:32 | NUR ---
NILX2
--- NOTE | 2020-09-23 13:00 | NUR ---
NIL X3
== END 2020-09-23 13:01 | disposition left against medical advice (07) ==
LOC: ED 12:55
DX: M79.661 Pain in right lower leg (principal); M79.662 Pain in left lower leg; Z53.21 Procedure and treatment not carried out due to patient leaving prior to being seen by health care provider

== ENCOUNTER 2020-11-10 01:10 | Emergency (ER) | payer MEDICAID ==
[~2020-11-10] VITALS: Ht 162.6 cm; Wt 108.6 kg
[2020-11-10 01:52] VITALS: BP 135/79
== END 2020-11-10 02:52 | disposition home or self-care (01) ==
LOC: ED 02:00
DX: R60.0 Localized edema (principal); L03.116 Cellulitis of left lower limb; L03.115 Cellulitis of right lower limb; K21.9 Gastro-esophageal reflux disease without esophagitis; I10 Essential (primary) hypertension; Z86.718 Personal history of other venous thrombosis and embolism
CPT/HCPCS: 99283

== ENCOUNTER 2020-12-10 22:50 | Emergency (ER) | payer MEDICAID ==
[~2020-12-10] VITALS: Ht 167.6 cm; Wt 111.2 kg
[2020-12-10 22:58] VITALS: BP 135/85
[2020-12-10] MEDS ORDERED: ONDANSETRON 2MG/ML, 2ML IVPush ONE (23:30)
[2020-12-10] MEDS ORDERED: SODIUM CHLORIDE 0.9% 1,000ML IVBOLUS ONE (23:30)
[2020-12-10] MEDS ORDERED: SODIUM CHLORIDE FLUSH 10ML SYR IVF ONE (23:30)
--- NOTE | 2020-12-11 00:08 | NUR ---
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 WAS CALLED ABOUT 20MIN AGO FOR LABS AND PT. WAS NIL AT THAT TIME. PT. NIL X 2 AT THIS TIME WHEN CALLED FOR ROOM.
--- NOTE | 2020-12-11 00:49 | NUR ---
PT SITTER: NIL X 3 WHEN CALLED FOR ROOM.
== END 2020-12-11 00:50 | disposition left against medical advice (07) ==
LOC: ED 23:30
DX: R22.43 Localized swelling, mass and lump, lower limb, bilateral (principal); R11.2 Nausea with vomiting, unspecified; Z53.21 Procedure and treatment not carried out due to patient leaving prior to being seen by health care provider

== ENCOUNTER 2020-12-15 00:58 | Emergency (ER) | payer MEDICAID ==
[~2020-12-15] VITALS: Ht 167.6 cm; Wt 110.0 kg
[2020-12-15 04:47] VITALS: BP 127/64
== END 2020-12-15 06:00 | disposition home or self-care (01) ==
LOC: ED 04:00
DX: I82.593 Chronic embolism and thrombosis of other specified deep vein of lower extremity, bilateral (principal); I10 Essential (primary) hypertension; K21.9 Gastro-esophageal reflux disease without esophagitis
CPT/HCPCS: 93970; 99285

== ENCOUNTER 2021-01-12 14:33 | Emergency (ER) | payer MEDICAID ==
[~2021-01-12] VITALS: Ht 162.6 cm; Wt 105.7 kg
[~2021-01-12 14:33] MED LIST changes: +OXYC1TAB12 PO; -OXYC1TAB14 PO
[2021-01-12 14:42] VITALS: BP 113/63
[2021-01-12 15:07] LABS: BASOPHILS % (AUTO) 0 % (0-1); EOSINOPHILS % (AUTO) 0 % (1-7); LYMPHOCYTES % (AUTO) 2 % (22-44); MEAN CORPUSCULAR HEMOGLOBIN 27.3 pg (27.0-34.8); MEAN CORPUSCULAR HGB CONC 32.8 g/dL (32.4-35.8); MEAN PLATELET VOLUME 7.2 fL (7.4-10.4); MONOCYTES % (AUTO) 2 % (2-9); NEUTROPHILS % (AUTO) 96 % (42-75); PLATELET COUNT 161 x10^3/uL (130-400); RED BLOOD COUNT 4.93 x10^6/uL (3.82-5.3); RED CELL DISTRIBUTION WIDTH 17.8 % (9.6-15.2)
[2021-01-12 15:19] LABS: ALANINE AMINOTRANSFERASE 33 U/L (12-78); ANION GAP 6 mmol/L (5-15); CALCIUM 8.1 mg/dL (8.5-10.1); CHLORIDE 104 mmol/L (98-107); CREATININE 0.95 mg/dL (0.55-1.02)
[2021-01-12 15:21] LABS: ALKALINE PHOSPHATASE 67 U/L (45-117); BILIRUBIN,TOTAL 0.7 mg/dL (0.2-1.0); TOTAL PROTEIN 7.7 g/dL (6.4-8.2)
== END 2021-01-12 16:11 | disposition left against medical advice (07) ==
LOC: ED 16:05
DX: R11.10 Vomiting, unspecified (principal)
CPT/HCPCS: 36415; 80053; 85025; 99283

== ENCOUNTER 2021-01-15 07:23 | Emergency (ER) | payer MEDICAID ==
[~2021-01-15] VITALS: Ht 152.4 cm; Wt 68.0 kg
[2021-01-15 07:29] VITALS: BP 113/52
[2021-01-15 08:48] LABS: BASOPHILS % (AUTO) 0 % (0-1); EOSINOPHILS % (AUTO) 2 % (1-7); LYMPHOCYTES % (AUTO) 5 % (22-44); MEAN CORPUSCULAR HEMOGLOBIN 27.1 pg (27.0-34.8); MEAN CORPUSCULAR HGB CONC 32.5 g/dL (32.4-35.8); MEAN PLATELET VOLUME 7.4 fL (7.4-10.4); MONOCYTES % (AUTO) 7 % (2-9); NEUTROPHILS % (AUTO) 86 % (42-75); PLATELET COUNT 166 x10^3/uL (130-400); RED BLOOD COUNT 4.69 x10^6/uL (3.82-5.3); RED CELL DISTRIBUTION WIDTH 17.5 % (9.6-15.2)
[2021-01-15 08:58] LABS: ANION GAP 6 mmol/L (5-15); CALCIUM 8.5 mg/dL (8.5-10.1); CHLORIDE 99 mmol/L (98-107)
[2021-01-15 08:59] LABS: ALBUMIN 2.8 g/dL (3.4-5.0)
--- NOTE | 2021-01-15 10:53 | NUR ---
PT SIGNED AMA PAPERWORK WITH REGISTRATION.
== END 2021-01-15 10:54 | disposition left against medical advice (07) ==
LOC: ED 08:27
DX: M79.662 Pain in left lower leg (principal)
CPT/HCPCS: 36415; 80048; 82040; 83605; 85025; 87040; 99284

== ENCOUNTER 2021-01-17 10:22 | Inpatient (IN) | payer MEDICAID ==
[~2021-01-17] VITALS: Ht 153.7 cm; Wt 103.6 kg
[2021-01-17] MEDS ORDERED: SODIUM CHLORIDE 0.9% 1,000ML IVBOLUS ONE (11:00)
--- NOTE | 2021-01-17 11:32 | NUR ---
stenocaptioner note: Pt to room from lobby.
--- NOTE | 2021-01-17 12:06 | NUR ---
lab at bedside
[2021-01-17 12:16] LABS: MEAN CORPUSCULAR HEMOGLOBIN 27.9 pg (27.0-34.8); MEAN CORPUSCULAR HGB CONC 33.3 g/dL (32.4-35.8); MEAN PLATELET VOLUME 7.3 fL (7.4-10.4); PLATELET COUNT 229 x10^3/uL (130-400); RED BLOOD COUNT 4.53 x10^6/uL (3.82-5.3); RED CELL DISTRIBUTION WIDTH 17.7 % (9.6-15.2)
[2021-01-17 12:24] LABS: ALBUMIN 2.5 g/dL (3.4-5.0); ANION GAP 8 mmol/L (5-15); CALCIUM 8.4 mg/dL (8.5-10.1); CHLORIDE 98 mmol/L (98-107); CREATININE 0.74 mg/dL (0.55-1.02)
[2021-01-17 12:45] LABS: <PLATELET ESTIMATE> ADEQUATE; <PLT MORPHOLOGY> NORMAL PLT MORPH; ANISOCYTOSIS 1+; BANDS%(MANUAL) 3 % (0-7); EOS#(MANUAL) 0.17 x10^3/uL (0.0-0.4); EOS% (MANUAL) 1 % (1-7); LYMPH#(MANUAL) 0.66 x10^3/uL (1-3.4); LYMPHS% (MANUAL) 4 % (22-44); METAMYELOCYTES# (MANUAL) 0.17 x10^3/uL (0-0); METAMYELOCYTES% (MANUAL) 1 % (0-1); MONOS% (MANUAL) 6 % (2-9); SEG#(MANUAL) 14.11 x10^3/uL (1.8-6.8); SEGS% (MANUAL) 85 % (42-75)
[2021-01-17 12:46] LABS: PMNS WITH VACUOLES 1+
[2021-01-17] MEDS ORDERED: VANCOMYCIN PER PHARMACY MC ONE (14:30)
[2021-01-17] MEDS ORDERED: PIPERACILLIN/TAZO 3.375 GM in DEXTROSE 5% 50 ML IVPB ONE (14:30)
[2021-01-17] MEDS ORDERED: HYDROcodone/APAP 5/325 TABLET PO PRN (15:00)
[2021-01-17] MEDS ORDERED: VANCOMYCIN 2,300 MG in SODIUM CHLORIDE 0.9% 500 ML IV ONE (15:00)
[2021-01-17] MEDS ORDERED: POTASSIUM CHLORIDE 20 MEQ TAB.ER.PRT PO ONE (15:00)
[2021-01-17] MEDS ORDERED: ACETAMINOPHEN 325 MG TABLET PO PRN (15:00)
[2021-01-17] MEDS: CEFAZOLIN 2,000 MG in SODIUM CHLORIDE 0.9% 50 ML IV SCH ×2 (15:00→23:22)
[2021-01-17] MEDS ORDERED: MAALOX/HYOSCYAMINE/LIDOCAINE 45 ML BTL PO ONE (15:00)
[2021-01-17 15:06] LABS: C-REACTIVE PROTEIN, QUANT > 19.00 mg/dL (0.02-0.49)
[2021-01-17] MEDS ORDERED: PANTOPRAZOLE 40MG TABLET ONE (15:32)
[2021-01-17] MEDS ORDERED: POTASSIUM CHLORIDE 20 MEQ TAB.ER.PRT ONE (15:32)
[2021-01-17] MEDS ORDERED: MAALOX/HYOSCYAMINE/LIDOCAINE 45 ML BTL ONE (15:33)
[2021-01-17] MEDS ORDERED: CYCLOBENZAPRINE 10 MG TABLET ONE (15:33)
--- NOTE | 2021-01-17 15:38 | NUR ---
u/s tech at beside, unable to give meds at this time
[2021-01-17] MEDS: PANTOPRAZOLE 40MG TABLET PO SCH (16:05)
[2021-01-17] MEDS: GABAPENTIN 100 MG CAPSULE PO SCH ×2 (16:05→21:25)
[2021-01-17] MEDS: CYCLOBENZAPRINE 10 MG TABLET PO SCH ×2 (16:05→21:25)
[2021-01-17] MEDS: SODIUM CHLORIDE 0.9% 1,000 ML IV SCH ×2 (16:12→21:25)
[2021-01-17 16:37] LABS: HCT (SEDRATE) 37.9 % (34.6-47.8)
[2021-01-17 17:09] VITALS: BP 97/59
[2021-01-17] MEDS: APIXABAN 5 MG TABLET PO SCH (21:25)
[2021-01-17 21:30] VITALS: BP 100/68
[2021-01-18 02:40] VITALS: BP 91/61
[2021-01-18] MEDS: SODIUM CHLORIDE 0.9% 1,000 ML IV SCH (05:05)
[2021-01-18 06:25] LABS: BASOPHILS % (AUTO) 2 % (0-1); EOSINOPHILS % (AUTO) 1 % (1-7); LYMPHOCYTES % (AUTO) 8 % (22-44); MEAN CORPUSCULAR HEMOGLOBIN 27.4 pg (27.0-34.8); MEAN CORPUSCULAR HGB CONC 33.1 g/dL (32.4-35.8); MEAN PLATELET VOLUME 7.1 fL (7.4-10.4); MONOCYTES % (AUTO) 8 % (2-9); NEUTROPHILS % (AUTO) 82 % (42-75); PLATELET COUNT 260 x10^3/uL (130-400); RED BLOOD COUNT 3.94 x10^6/uL (3.82-5.3); RED CELL DISTRIBUTION WIDTH 17.8 % (9.6-15.2)
[2021-01-18 06:31] LABS: ALANINE AMINOTRANSFERASE 14 U/L (12-78); ALBUMIN 1.7 g/dL (3.4-5.0); CALCIUM 7.4 mg/dL (8.5-10.1); CREATININE 0.75 mg/dL (0.55-1.02)
[2021-01-18 06:33] LABS: ALKALINE PHOSPHATASE 62 U/L (45-117); BILIRUBIN,TOTAL 0.5 mg/dL (0.2-1.0); TOTAL PROTEIN 5.9 g/dL (6.4-8.2)
[2021-01-18] MEDS: CEFAZOLIN 2,000 MG in SODIUM CHLORIDE 0.9% 50 ML IV SCH ×3 (06:38→22:45)
[2021-01-18] MEDS: PANTOPRAZOLE 40MG TABLET PO SCH (06:38)
[2021-01-18 06:39] LABS: ANION GAP 4 mmol/L (5-15)
[2021-01-18 06:40] LABS: CHLORIDE 109 mmol/L (98-107)
[2021-01-18 06:59] VITALS: BP 94/63
[2021-01-18] MEDS: TERBINAFINE 250MG TABLET PO SCH (08:41)
[2021-01-18] MEDS: APIXABAN 5 MG TABLET PO SCH ×2 (08:42→20:25)
[2021-01-18] MEDS: SERTRALINE 50MG TABLET PO SCH (08:42)
[2021-01-18] MEDS: GABAPENTIN 100 MG CAPSULE PO SCH ×3 (08:42→20:25)
[2021-01-18] MEDS: PRAVASTATIN 20 MG TABLET PO SCH (08:42)
[2021-01-18] MEDS: CYCLOBENZAPRINE 10 MG TABLET PO SCH ×3 (08:42→20:25)
[2021-01-18] MEDS ORDERED: POTASSIUM CHLORIDE 20 MEQ TAB.ER.PRT PO ONE (09:00)
[2021-01-18] MEDS: FUROSEMIDE 40 MG TABLET PO SCH (09:21)
[2021-01-18 13:21] VITALS: BP 90/60
[2021-01-18 20:23] VITALS: BP 107/70
[2021-01-19 01:24] VITALS: BP 106/72
[2021-01-19 05:48] LABS: BASOPHILS % (AUTO) 1 % (0-1); EOSINOPHILS % (AUTO) 3 % (1-7); LYMPHOCYTES % (AUTO) 9 % (22-44); MEAN CORPUSCULAR HEMOGLOBIN 27.4 pg (27.0-34.8); MEAN CORPUSCULAR HGB CONC 32.8 g/dL (32.4-35.8); MEAN PLATELET VOLUME 6.9 fL (7.4-10.4); MONOCYTES % (AUTO) 10 % (2-9); NEUTROPHILS % (AUTO) 77 % (42-75); PLATELET COUNT 362 x10^3/uL (130-400); RED CELL DISTRIBUTION WIDTH 17.9 % (9.6-15.2)
[2021-01-19 05:56] LABS: ANION GAP 4 mmol/L (5-15); CALCIUM 7.9 mg/dL (8.5-10.1); CHLORIDE 107 mmol/L (98-107)
[2021-01-19 05:57] LABS: CREATININE 0.76 mg/dL (0.55-1.02)
[2021-01-19] MEDS: PANTOPRAZOLE 40MG TABLET PO SCH (06:34)
[2021-01-19] MEDS: CEFAZOLIN 2,000 MG in SODIUM CHLORIDE 0.9% 50 ML IV SCH ×3 (06:34→22:49)
[2021-01-19 07:36] VITALS: BP 102/68
[2021-01-19] MEDS: SERTRALINE 50MG TABLET PO SCH (08:15)
[2021-01-19] MEDS: APIXABAN 5 MG TABLET PO SCH ×2 (08:15→20:59)
[2021-01-19] MEDS: TERBINAFINE 250MG TABLET PO SCH (08:16)
[2021-01-19] MEDS: GABAPENTIN 100 MG CAPSULE PO SCH ×3 (08:16→20:59)
[2021-01-19] MEDS: CYCLOBENZAPRINE 10 MG TABLET PO SCH ×3 (08:16→20:59)
[2021-01-19] MEDS: PRAVASTATIN 20 MG TABLET PO SCH (08:16)
[2021-01-19] MEDS: FUROSEMIDE 40 MG TABLET PO SCH (08:16)
[2021-01-19] MEDS ORDERED: POTASSIUM CHLORIDE 20 MEQ PACKET PO ONE (09:30)
[2021-01-19] MEDS ORDERED: POTASSIUM CHLORIDE 20 MEQ in SODIUM CHLORIDE 0.9% 250 ML IV ONE (09:30)
[2021-01-19 12:11] LABS: ANION GAP 3 mmol/L (5-15); CALCIUM 8.2 mg/dL (8.5-10.1); CHLORIDE 109 mmol/L (98-107)
[2021-01-19 12:13] LABS: CREATININE 0.87 mg/dL (0.55-1.02)
[2021-01-19 13:22] VITALS: BP 92/64
[2021-01-19 19:46] VITALS: BP 108/72
[2021-01-20 02:42] VITALS: BP 113/76
[2021-01-20] MEDS: CEFAZOLIN 2,000 MG in SODIUM CHLORIDE 0.9% 50 ML IV SCH ×3 (06:32→23:49)
[2021-01-20] MEDS: PANTOPRAZOLE 40MG TABLET PO SCH (06:32)
[2021-01-20 07:07] LABS: BASOPHILS % (AUTO) 1 % (0-1); EOSINOPHILS % (AUTO) 4 % (1-7); LYMPHOCYTES % (AUTO) 11 % (22-44); MEAN CORPUSCULAR HEMOGLOBIN 27.7 pg (27.0-34.8); MEAN CORPUSCULAR HGB CONC 32.9 g/dL (32.4-35.8); MEAN PLATELET VOLUME 6.7 fL (7.4-10.4); MONOCYTES % (AUTO) 9 % (2-9); NEUTROPHILS % (AUTO) 76 % (42-75); PLATELET COUNT 372 x10^3/uL (130-400); RED BLOOD COUNT 3.83 x10^6/uL (3.82-5.3)
[2021-01-20 07:15] LABS: CHLORIDE 104 mmol/L (98-107)
[2021-01-20 07:25] LABS: ANION GAP 6 mmol/L (5-15); CALCIUM 8.1 mg/dL (8.5-10.1); CREATININE 0.68 mg/dL (0.55-1.02)
[2021-01-20 07:46] VITALS: BP 116/80
[2021-01-20] MEDS ORDERED: POTASSIUM CHLORIDE 20 MEQ TAB.ER.PRT PO ONE (09:00)
[2021-01-20] MEDS: PRAVASTATIN 20 MG TABLET PO SCH (09:10)
[2021-01-20] MEDS: CYCLOBENZAPRINE 10 MG TABLET PO SCH ×3 (09:10→21:46)
[2021-01-20] MEDS: TERBINAFINE 250MG TABLET PO SCH (09:10)
[2021-01-20] MEDS: FUROSEMIDE 40 MG TABLET PO SCH (09:11)
[2021-01-20] MEDS: APIXABAN 5 MG TABLET PO SCH ×2 (09:12→21:46)
[2021-01-20] MEDS: SERTRALINE 50MG TABLET PO SCH (09:14)
[2021-01-20] MEDS: GABAPENTIN 100 MG CAPSULE PO SCH ×3 (09:14→21:46)
[2021-01-20 13:00] VITALS: BP 105/73
[2021-01-20 21:25] VITALS: BP 113/69
[2021-01-21 00:51] VITALS: BP 100/69
[2021-01-21] MEDS: PANTOPRAZOLE 40MG TABLET PO SCH (05:19)
[2021-01-21 07:41] VITALS: BP 110/76
[2021-01-21] MEDS: CEFAZOLIN 2,000 MG in SODIUM CHLORIDE 0.9% 50 ML IV SCH (07:43)
[2021-01-21] MEDS: CYCLOBENZAPRINE 10 MG TABLET PO SCH ×3 (08:36→20:55)
[2021-01-21] MEDS: GABAPENTIN 100 MG CAPSULE PO SCH ×3 (08:36→20:55)
[2021-01-21] MEDS: TERBINAFINE 250MG TABLET PO SCH (08:36)
[2021-01-21] MEDS: SERTRALINE 50MG TABLET PO SCH (08:36)
[2021-01-21] MEDS: PRAVASTATIN 20 MG TABLET PO SCH (08:36)
[2021-01-21] MEDS: APIXABAN 5 MG TABLET PO SCH ×2 (08:36→20:55)
[2021-01-21] MEDS: FUROSEMIDE 40 MG TABLET PO SCH (09:58)
[2021-01-21] MEDS ORDERED: POTASSIUM CHLORIDE 20 MEQ TAB.ER.PRT PO ONE (10:00)
[2021-01-21 13:15] VITALS: BP_SYST 137; BP_SYST 97; BP_DIAS 61; BP_DIAS 77
[2021-01-21] MEDS: CEFAZOLIN PMX 2GM/50ML 50 ML IVPB SCH ×2 (15:34→23:27)
[2021-01-21 19:45] VITALS: BP 141/69
[2021-01-22 01:41] VITALS: BP 107/72
[2021-01-22] MEDS: PANTOPRAZOLE 40MG TABLET PO SCH (05:26)
[2021-01-22 06:05] LABS: BASOPHILS % (AUTO) 1 % (0-1); EOSINOPHILS % (AUTO) 4 % (1-7); LYMPHOCYTES % (AUTO) 10 % (22-44); MEAN CORPUSCULAR HEMOGLOBIN 26.8 pg (27.0-34.8); MEAN CORPUSCULAR HGB CONC 32.3 g/dL (32.4-35.8); MEAN PLATELET VOLUME 6.1 fL (7.4-10.4); MONOCYTES % (AUTO) 9 % (2-9); NEUTROPHILS % (AUTO) 76 % (42-75); PLATELET COUNT 440 x10^3/uL (130-400); RED BLOOD COUNT 4.15 x10^6/uL (3.82-5.3); RED CELL DISTRIBUTION WIDTH 17.6 % (9.6-15.2)
[2021-01-22 06:14] LABS: ANION GAP 5 mmol/L (5-15); CALCIUM 8.1 mg/dL (8.5-10.1); CHLORIDE 103 mmol/L (98-107); CREATININE 0.73 mg/dL (0.55-1.02); TOTAL IRON BINDING CAPACITY 135 mcg/dL (250-450)
[2021-01-22 06:41] LABS: % IRON SATURATION 30 % (20-55); IRON LEVEL 40 mcg/dL (50-170)
[2021-01-22 06:55] LABS: FREE T4 (FREE THYROXINE) 1.45 ng/dL (0.76-1.46)
[2021-01-22] MEDS: CEFAZOLIN PMX 2GM/50ML 50 ML IVPB SCH ×2 (08:30→16:50)
[2021-01-22] MEDS: GABAPENTIN 100 MG CAPSULE PO SCH ×3 (08:54→21:12)
[2021-01-22] MEDS: APIXABAN 5 MG TABLET PO SCH ×2 (08:54→21:12)
[2021-01-22] MEDS: CYCLOBENZAPRINE 10 MG TABLET PO SCH ×3 (08:54→21:12)
[2021-01-22] MEDS: FUROSEMIDE 40 MG TABLET PO SCH (08:54)
[2021-01-22] MEDS: SERTRALINE 50MG TABLET PO SCH (08:54)
[2021-01-22] MEDS: TERBINAFINE 250MG TABLET PO SCH (08:54)
[2021-01-22] MEDS: PRAVASTATIN 20 MG TABLET PO SCH (08:54)
[2021-01-22 09:08] VITALS: BP 96/67
[2021-01-22 15:12] VITALS: BP 103/70
[2021-01-22 21:04] VITALS: BP 95/65
[2021-01-23] MEDS: CEFAZOLIN PMX 2GM/50ML 50 ML IVPB SCH ×3 (00:28→16:10)
[2021-01-23 03:30] VITALS: BP 115/67
[2021-01-23] MEDS: PANTOPRAZOLE 40MG TABLET PO SCH (05:58)
[2021-01-23 06:25] LABS: ANION GAP 3 mmol/L (5-15); CHLORIDE 103 mmol/L (98-107)
[2021-01-23 06:26] LABS: CREATININE 0.77 mg/dL (0.55-1.02)
[2021-01-23] MEDS ORDERED: POTASSIUM CHLORIDE 20 MEQ TAB.ER.PRT PO ONE (07:00)
[2021-01-23 07:46] VITALS: BP 109/74
[2021-01-23] MEDS: SERTRALINE 50MG TABLET PO SCH (08:41)
[2021-01-23] MEDS: TERBINAFINE 250MG TABLET PO SCH (08:41)
[2021-01-23] MEDS: APIXABAN 5 MG TABLET PO SCH ×2 (08:41→21:17)
[2021-01-23] MEDS: FUROSEMIDE 40 MG TABLET PO SCH (08:41)
[2021-01-23] MEDS: GABAPENTIN 100 MG CAPSULE PO SCH ×3 (08:41→21:17)
[2021-01-23] MEDS: CYCLOBENZAPRINE 10 MG TABLET PO SCH ×3 (08:42→21:17)
[2021-01-23] MEDS: PRAVASTATIN 20 MG TABLET PO SCH (08:42)
[2021-01-23 12:30] VITALS: BP 95/67
[2021-01-23 21:28] VITALS: BP 102/70
[2021-01-24] MEDS: CEFAZOLIN PMX 2GM/50ML 50 ML IVPB SCH ×2 (00:30→08:43)
[2021-01-24 00:38] VITALS: BP 106/73
[2021-01-24] MEDS: PANTOPRAZOLE 40MG TABLET PO SCH (05:31)
[2021-01-24] MEDS ORDERED: POTASSIUM CHLORIDE 20 MEQ TAB.ER.PRT PO SCH (08:00)
[2021-01-24] MEDS: CYCLOBENZAPRINE 10 MG TABLET PO SCH (08:43)
[2021-01-24] MEDS: FUROSEMIDE 40 MG TABLET PO SCH (08:43)
[2021-01-24] MEDS: GABAPENTIN 100 MG CAPSULE PO SCH (08:43)
[2021-01-24] MEDS: SERTRALINE 50MG TABLET PO SCH (08:43)
[2021-01-24] MEDS: PRAVASTATIN 20 MG TABLET PO SCH (08:43)
[2021-01-24] MEDS: APIXABAN 5 MG TABLET PO SCH (08:43)
[2021-01-24] MEDS: TERBINAFINE 250MG TABLET PO SCH (08:43)
[2021-01-24 08:47] VITALS: BP 102/70
[2021-01-24] MEDS ORDERED: APIX5TAB PO (13:07)
[2021-01-24] MEDS ORDERED: AMOX1TAB64 PO (13:07)
[2021-01-24 13:41] VITALS: BP 101/65
== END 2021-01-24 15:01 | disposition home or self-care (01) | DRG 720 ==
LOC: ED 10:32 → EDIP 14:08 → 4NE 16:51
PROVIDERS: ADMIT Emergency Medicine; ATTEND Hospitalist
DX: A41.9 Sepsis, unspecified organism (principal); E87.2 Acidosis; E46 Unspecified protein-calorie malnutrition; I82.401 Acute embolism and thrombosis of unspecified deep veins of right lower extremity; B35.1 Tinea unguium; L03.116 Cellulitis of left lower limb; D64.9 Anemia, unspecified; M79.89 Other specified soft tissue disorders; E87.6 Hypokalemia; I10 Essential (primary) hypertension; I89.0 Lymphedema, not elsewhere classified; D47.3 Essential (hemorrhagic) thrombocythemia; I87.8 Other specified disorders of veins; E66.9 Obesity, unspecified; Z86.711 Personal history of pulmonary embolism; Z90.49 Acquired absence of other specified parts of digestive tract; Z79.01 Long term (current) use of anticoagulants; Z86.718 Personal history of other venous thrombosis and embolism; Z79.899 Other long term (current) drug therapy; Z68.41 Body mass index [BMI] 40.0-44.9, adult
CPT/HCPCS: 36415; 80048; 80053; 82040; 82607; 82728; 83540; 83550; 83605; 83735; 83880; 84132; 84439; 84443; 85025; 85651; 86140; 87040; 93306; 93356; 93970; 96374; 99285; G0378; J0690; J2543; J3370; J3480; J7030; J7040; J7050